=== PATIENT | female | born 1950 | race African-American/Black ===

== ENCOUNTER 2018-12-14 04:46 | Inpatient (IN) ==
[2018-12-14] MEDS ORDERED: Ipratropium/Albuterol Neb 3 ML IH ONE (05:01)
[2018-12-14] MEDS ORDERED: *HR* LORazepam 2 MG/ML VIAL IVP ONE (05:01)
--- NOTE | 2018-12-14 05:06 | Emergency Department Note ---
Disposition Clinical Impression: Pulmonary edema, COPD exacerbation, SAYDA (acute kidney injury) Disposition: Admitted As Inpatient Condition: Fair SOB HPI - General Chief Complaint: ED Shortness of Breath/Dyspnea Stated Complaint: "BRYCE" Time Seen by Provider: 12/14/18 04:47 Source: patient, family Mode of arrival: private vehicle Limitations: no limitations Nursing Notes Reviewed: Yes Vital Signs Reviewed: Yes - History of Present Illness 68-year-old female with a history of liver cancer who is on chemotherapy every 2 weeks with her last dose last Saturday, COPD, immunocompromise status, anemia, hyperlipidemia, hypertension who also occasionally uses cocaine and alcohol presents emergency department for evaluation of sudden onset shortness of breath around 4:00 this morning. Apparently, sometime during the night the patient's furnace went out and while the HVAC people were they are fixing the furnace patient started having shortness of breath sometime between 3 and 4 AM, she was unable to get it under control so she had her child bring her to the emergency department. Apparently, patient is on 4 L oxygen at all times at home, her son states she utilizes around 50 feet of extension tubing for her oxygen. Patient states she felt fine prior to this but feels like she cannot cough anything sputum AND her chest. She states she was admitted here last month for similar complaints. Patient states she had a couple of 24 ounce beers today, she states she utilizes marijuana "all day everyday", she does continue to utilize cocaine however she states last time she used was . Pt Subjective Complaint: shortness of breath, cough Onset (ago): hour(s) Context: other Severity: moderate Consistency/Duration: constant Improves with: nothing Worsens with: exertion, coughing Known history of: COPD, other Associated symptoms: Reports: cough, wheezing. Denies: chest pain, pain with inspiration, fever, sputum production, orthopnea, lower extremity pain, polyuria, polydipsia, parasthesias, palpitations, hemoptysis, diaphoresis, nausea/vomiting, syncope, abdominal pain, rash, sense of impending doom Treatment prior to arrival: oxygen, bronchodilator Cough present: Yes Cough Description: Involuntary, Non-Productive Cough Frequency: Intermittent Sputum production: No Sputum Amount: None - Related Data Home oxygen amount: 4 liters Home Medications Medication Instructions Recorded Confirmed Amlodipine Besylate 10 mg PO DAILY 02/17/16 12/15/18 Loratadine [Claritin] 10 mg PO DAILY 02/17/16 12/14/18 Atorvastatin Calcium [Lipitor] 80 mg PO DAILY 05/03/17 12/15/18 Mirtazapine [Remeron] 22.5 mg PO HS 05/03/17 12/15/18 Pantoprazole Sodium 40 mg PO BID 05/03/17 12/14/18 Carvedilol 12.5 mg PO BID 11/07/18 12/14/18 Gemcitabine HCl 11/07/18 11/07/18 Levothyroxine 125 mcg PO DAILY 11/07/18 12/14/18 Potassium Chloride [Klor-Con 10] 20 mg PO BID 11/07/18 12/14/18 Rivaroxaban 20 mg PO DAILY 11/07/18 12/14/18 Trintellix 20 mg PO DAILY 11/07/18 12/15/18 ARIPiprazole [Abilify] 7.5 mg PO DAILY 12/14/18 12/15/18 Nicotine [Nicotine Patch] 21 mcg TP DAILY 12/14/18 12/14/18 Promethazine [Phenergan] 25 mg PO Q6HR 12/14/18 12/14/18 diazePAM [Valium] 2 mg PO DAILY PRN 12/14/18 12/15/18 Acetaminophen [Tylenol] 650 mg PO Q6HR PRN 12/15/18 12/15/18 Albuterol Sulfate [Albuterol 1 puff IN Q6H PRN 12/15/18 12/15/18 Inhaler] Prazosin HCl [Minipress] 10 mg PO HS 12/15/18 12/15/18 Tiotropium [place] [Spiriva 5 mcg IN DAILY 12/15/18 12/15/18 Respimat] Previous Rx's Medication Instructions Recorded Acetylcysteine 10% 2 ml IH [id number] Days #28 inhsol 12/19/18 Gabapentin [Neurontin] 400 mg PO BID 30 Days #60 capsule 12/19/18 Ipratropium/Albuterol Neb [Duoneb] 3 ml IH [id number] 7 Days #28 inhsol 12/19/18 levoFLOXacin [Levaquin] 750 mg PO Q48H 6 Days #3 tablet 12/19/18 predniSONE [PredniSONE] See Taper PO DAILY 9 Days #12 12/19/18 tablet Allergies Allergy/AdvReac Type Severity Reaction Status Date / Time bupropion [From Wellbutrin] AdvReac See Verified 02/16/18 02:01 Comments enalaprilat [From Vasotec] AdvReac Hives Verified 02/16/18 02:01 tramadol AdvReac Headache Verified 02/16/18 02:01 All systems ED: reviewed and negative except as stated. Review of Systems: As Per HPI Constitutional: Denies: fever, chills ENT ED: Denies: throat pain, epistaxis, congestion Cardiovascular: Denies: chest pain, palpitations Respiratory: Reports: cough, dyspnea, wheezes. Denies: hemoptysis, stridor, spu carla production Gastrointestinal: Denies: abdominal pain, nausea, vomiting Musculoskeletal: Denies: back pain Neurological: Denies: headache Past Medical History - Past Medical History Attestation: Yes The following information was validated with the patient. Source: patient Medical history: Reports: cancer, COPD, hyperlipidemia, hypertension Surgical history: Reports: other Psychiatric history: Reports: anxiety COMMUNITY DEVELOPMENT COORDINATOR history: Reports: no COMMUNITY DEVELOPMENT COORDINATOR history - Social History Smoking Status: Current every day smoker Smokeless Tobacco Status: No Alcohol use: Reports: occasionally Drug use: Reports: cocaine, marijuana Physical Exam - General Limitations: no limitations General appearance: alert, in no apparent distress - Head Head exam: atraumatic, normocephalic, normal inspection - Eye Eye exam: Present: normal appearance, PERRL, EOMI - ENT ENT exam: mucous membranes moist - Neck Neck exam: Present: normal inspection, full ROM, trachea midline - Chest Chest inspection: Present: normal inspection, symmetric chest wall rise - Respiratory Respiratory exam: Present: wheezes (BLL), accessory muscle use, other (diminished BLL). Absent: stridor, prolonged expiratory phase - Cardiovascular Cardiovascular exam: Present: normal rhythm, tachycardia, normal heart sounds - Abdominal Exam Abdominal exam: Present: soft, Non-Tender, normal bowel sounds - Extremities Exam Extremities exam: Present: normal inspection, full ROM. Absent: tenderness, pedal edema - Back Exam Back exam: Present: normal inspection, full ROM. Absent: tenderness - Neurological Exam Neurological exam: Present: alert, oriented X3 - Psychiatric Psychiatric exam: Present: normal affect, normal mood - Skin Skin exam: Present: warm, dry, intact, normal color Course Course Narrative: Nontoxic appearing female in moderate amount of distress. Patient is breathing fast, she does appear very anxious. She arrives without any oxygen, immediately placed oxygen on her and patient is not hypoxic. She does well when she has the oxygen on. Patient arrives with a temperature of 99.4, she is hypertensive. EKG upon arrival at 04:59 reveals a sinus tachycardia with ventricular rate of 100 bpm, ID interval 156 seconds, QTc 460 ms. There is no evidence of ST depression or elevation, with comparison to previous there is no acute change. Physical exam reveals patient was slight tachypnea at 22 respirations minute, and she does have pursed lips breathing, she does appear anxious. Lungs are severely diminished in the bases, she does have expiratory wheezes to the bases. Heart rate regular rhythm, no edema. Abdomen is protuberant, soft. Concern for continuation of PNA, pulmonary edema. Will obtain basic labs, CXR. WIll give duonebs. Hold off on steroids given her immunocompromise status. Vital Signs Temperature 99.4 F 12/14/18 04:55 Pulse Rate 98 12/14/18 04:55 Respiratory Rate 28 12/14/18 04:55 Blood Pressure 175/102 12/14/18 04:55 O2 Sat by Pulse Oximetry 97 12/14/18 04:55 Temperature 98.3 F 12/19/18 10:32 Pulse Rate 78 12/19/18 10:32 Respiratory Rate 15 12/19/18 10:32 Blood Pressure 152/91 12/19/18 10:32 O2 Sat by Pulse Oximetry 97 12/19/18 10:32 Oxygen Delivery Oxygen Delivery Nasal Cannula Shortness of Breath/Dyspnea - Lab Data Result diagrams: 12/18/18 03:58 12/18/18 03:58 Lab Results 12/14/18 12/14/18 12/14/18 Range/Units 05:16 05:16 05:16 WBC 2.4 L (4.3-11.1) K/mcL RBC 2.72 L (3.82-4.97) M/mcL Hgb 9.5 L (11.5-15.4) g/dL Hct 27.8 L (35.3-44.9) % MCV 102.2 H (83.0-100.0) fL MCH 34.9 H (28.0-33.3) pg MCHC 34.2 (31.6-35.5) g/dL RDW 17.4 H (11.5-14.5) % Plt Count 146 (140-400) K/mcL MPV 9.8 (9.4-12.4) fL Immature Gran % 0.4 (0-4) % Seg Neutrophils % 66.4 % Lymphocytes % 27.4 % Monocytes % 2.5 % Eosinophils % 2.9 % Basophils % 0.4 % Neutrophils # 1.6 (1.6-8.9) K/mcL Lymphocytes # 0.7 (0.6-4.6) K/mcL Monocytes # 0.1 (0.0-1.3) K/mcL Eosinophils # 0.1 (0.0-0.6) K/mcL Basophils # 0.0 (0.0-0.2) K/mcL Sample Site ABG pH (7.32-7.45) pH Units ABG pCO2 (35-45) mmHg ABG pO2 (85-104) mmHg ABG HCO3 (21-27) mEq/L ABG Total CO2 (20-26) mEq/L ABG O2 Saturation (95-98) % ABG Base Excess (-2 to 3) mEq/L Patrick Test O2 Delivery Device Inspired O2 (1-15=lpm xe44-210=%) Sodium 139 (136-145) mEq/L Potassium 3.3 L (3.5-5.1) mEq/L Chloride 99 (98-107) mEq/L Carbon Dioxide 26 (23-29) mEq/L BUN 18 (8-23) mg/dL Creatinine 1.26 H (0.60-1.20) mg/dL Est GFR ( Amer) 51 L (> 60) Est GFR (Non-Af Amer) 42 L (> 60) BUN/Creatinine Ratio 14 (6-26) Glucose 88 (70-105) mg/dL Calculated Osmolality 289 (280-300) Lactic Acid 2.1 (0.5-2.2) mmol/L Calcium 7.7 L (8.6-10.3) mg/dL Total Bilirubin 0.3 (0.3-1.0) mg/dL Direct Bilirubin 0.1 (0.0-0.2) mg/dL Indirect Bilirubin 0.2 (0.0-1.2) mg/dL AST 25 (13-39) Units/L ALT 12 (7-52) Units/L Alkaline Phosphatase 48 (34-104) Units/L Troponin I < 0.03 (< 0.04) ng/mL B-Natriuretic Peptide (Less than 100) pg/mL Serum Total Protein 6.3 L (6.4-8.9) g/dL Albumin 3.6 (3.5-5.7) g/dL Globulin 2.7 (2.4-3.5) g/dL Albumin/Globulin Ratio 1.3 (1.1-2.2) Urine Color (Yellow) Urine Clarity (Clear) Urine pH (5.0-8.0) pH Units Ur Specific [place] (1.010-1.025) Urine Protein (Neg-Trace) mg/dL Urine Glucose (UA) (Normal) mg/dL Urine Ketones (Negative) mg/dL Urine Blood (Negative) Urine Nitrite (Negative) Urine Bilirubin (Negative) Urine Urobilinogen (Normal) mg/dL Ur Leukocyte Esterase (Negative) Urine Microscopic RBC (0-3) per hpf Urine Microscopic WBC (0-3) per hpf Ur Squamous Epith Cells (None-Few) per lpf Urine Bacteria (None-Few) per hpf Hyaline Casts (None-Few) per lpf Ur Culture Indicated? (NO) 12/14/18 12/14/18 12/14/18 Range/Units 05:21 06:17 07:15 WBC (4.3-11.1) K/mcL RBC (3.82-4.97) M/mcL Hgb (11.5-15.4) g/dL Hct (35.3-44.9) % MCV (83.0-100.0) fL MCH (28.0-33.3) pg MCHC (31.6-35.5) g/dL RDW (11.5-14.5) % Plt Count (140-400) K/mcL MPV (9.4-12.4) fL Immature Gran % (0-4) % Seg Neutrophils % % Lymphocytes % % Monocytes % % Eosinophils % % Basophils % % Neutrophils # (1.6-8.9) K/mcL Lymphocytes # (0.6-4.6) K/mcL Monocytes # (0.0-1.3) K/mcL Eosinophils # (0.0-0.6) K/mcL Basophils # (0.0-0.2) K/mcL Sample Site R Radial ABG pH 7.43 (7.32-7.45) pH Units ABG pCO2 43 (35-45) mmHg ABG pO2 72 L (85-104) mmHg ABG HCO3 28 H (21-27) mEq/L ABG Total CO2 30 H (20-26) mEq/L ABG O2 Saturation 95 (95-98) % ABG Base Excess 4 H (-2 to 3) mEq/L Patrick Test Positive O2 Delivery Device Cannula Inspired O2 4.0 (1-15=lpm qf19-660=%) Sodium (136-145) mEq/L Potassium (3.5-5.1) mEq/L Chloride (98-107) mEq/L Carbon Dioxide (23-29) mEq/L BUN (8-23) mg/dL Creatinine (0.60-1.20) mg/dL Est GFR ( Amer) (> 60) Est GFR (Non-Af Amer) (> 60) BUN/Creatinine Ratio (6-26) Glucose (70-105) mg/dL Calculated Osmolality (280-300) Lactic Acid (0.5-2.2) mmol/L Calcium (8.6-10.3) mg/dL Total Bilirubin (0.3-1.0) mg/dL Direct Bilirubin (0.0-0.2) mg/dL Indirect Bilirubin (0.0-1.2) mg/dL AST (13-39) Units/L ALT (7-52) Units/L Alkaline Phosphatase (34-104) Units/L Troponin I (< 0.04) ng/mL B-Natriuretic Peptide 76 (Less than 100) pg/mL Serum Total Protein (6.4-8.9) g/dL Albumin (3.5-5.7) g/dL Globulin (2.4-3.5) g/dL Albumin/Globulin Ratio (1.1-2.2) Urine Color Yellow (Yellow) Urine Clarity Clear (Clear) Urine pH 6.0 (5.0-8.0) pH Units Ur Specific [place] 1.014 (1.010-1.025) Urine Protein 30 H (Neg-Trace) mg/dL Urine Glucose (UA) Normal (Normal) mg/dL Urine Ketones Negative (Negative) mg/dL Urine Blood Negative (Negative) Urine Nitrite Negative (Negative) Urine Bilirubin Negative (Negative) Urine Urobilinogen Normal (Normal) mg/dL Ur Leukocyte Esterase Trace H (Negative) Urine Microscopic RBC 0-3 (0-3) per hpf Urine Microscopic WBC 3-5 H (0-3) per hpf Ur Squamous Epith Cells Many H (None-Few) per lpf Urine Bacteria None Seen (None-Few) per hpf Hyaline Casts None Seen (None-Few) per lpf Ur Culture Indicated? NO. A (NO) SJake - Theron Situation: Demographics, MOA Background: Presenting Complaint, Relevant PMH, Meds, & Allergies Assessment: Vital Signs, Course and respsone to treatment, Exam Concerns, Patient/Family Expectation, Pertinant Lab Results, Outstanding Labs Recommendation: Barrier(s) to disposition, Recommendation based on pending studies, treatments, or consults S.B.A.Elizabeth Report Given to: FEDERICO Mike Repor Time: 06:00
[2018-12-14 05:27] LABS: Basophils % 0.4 %; Eosinophils # 0.1 K/mcL (0.0-0.6); Eosinophils % 2.9 %; Hematocrit 27.8 % (35.3-44.9); Hemoglobin 9.5 g/dL (11.5-15.4); Immature Granulocytes % 0.4 % (0-4); Lymphocytes # 0.7 K/mcL (0.6-4.6); Lymphocytes % 27.4 %; Mean Corpuscular HGB Conc 34.2 g/dL (31.6-35.5); Mean Corpuscular Hemoglobin 34.9 pg (28.0-33.3); Mean Corpuscular Volume 102.2 fL (83.0-100.0); Mean Platelet Volume 9.8 fL (9.4-12.4); Monocytes # 0.1 K/mcL (0.0-1.3); Monocytes % 2.5 %; Neutrophils # 1.6 K/mcL (1.6-8.9); Platelet Count 146 K/mcL (140-400); Red Blood Count 2.72 M/mcL (3.82-4.97); Red Cell Distribution Width 17.4 % (11.5-14.5); Segmented Neutrophils % 66.4 %
[2018-12-14 05:45] LABS: Alanine Aminotransferase 12 Units/L (7-52); Albumin 3.6 g/dL (3.5-5.7); Albumin/Globulin Ratio 1.3 (1.1-2.2); Alkaline Phosphatase 48 Units/L (34-104); Aspartate Amino Transferase 25 Units/L (13-39); BUN/Creatinine Ratio 14 (6-26); Bilirubin,Direct 0.1 mg/dL (0.0-0.2); Bilirubin,Indirect 0.2 mg/dL (0.0-1.2); Bilirubin,Total 0.3 mg/dL (0.3-1.0); Blood Urea Nitrogen 18 mg/dL (8-23); Calcium 7.7 mg/dL (8.6-10.3); Carbon Dioxide 26 mEq/L (23-29); Chloride 99 mEq/L (98-107); Globulin 2.7 g/dL (2.4-3.5); Glucose 88 mg/dL (70-105); Osmolality,Calculated 289 (280-300); Potassium 3.3 mEq/L (3.5-5.1); Sodium 139 mEq/L (136-145); Total Protein 6.3 g/dL (6.4-8.9); eGFR For Non-African Americans 42 (> 60)
[2018-12-14 05:46] LABS: Troponin I < 0.03 ng/mL (< 0.04)
[2018-12-14] MEDS ORDERED: Furosemide 20 MG/2 ML VIAL IVP ONE (05:57)
[2018-12-14 06:23] LABS: ABG Base Excess 4 mEq/L (-2 to 3); ABG HCO3 28 mEq/L (21-27); ABG Oxygen Saturation 95 % (95-98); ABG PCO2 43 mmHg (35-45); ABG PH 7.43 pH Units (7.32-7.45); ABG PO2 72 mmHg (85-104); ABG TCO2 30 mEq/L (20-26)
--- NOTE | 2018-12-14 06:39 | Emergency Department Note ---
Disposition Clinical Impression: COPD exacerbation Pulmonary edema Qualifiers: Chronicity: chronic Qualified Code(s): J81.1 - Chronic pulmonary edema Disposition: Admitted As Inpatient Condition: Good Forms: ED Satisfaction Letter Time of Disposition: 06:39 General Adult HPI - General Chief complaint: ED Shortness of Breath/Dyspnea Stated complaint: "BRYCE" Time Seen by Provider: 12/14/18 04:47 Source: patient, family Mode of arrival: private vehicle Limitations: no limitations - History of Present Illness Pain Scale: 0 - Related Data Home Medications Medication Instructions Recorded Confirmed Aclidinium [place] [Tudorza 400 mcg IH BID 02/17/16 05/03/17 Pressair] Amlodipine Besylate 10 mg PO DAILY 02/17/16 05/03/17 Calcium Citrate/Vitamin D3 1 each PO BID 02/17/16 05/03/17 [Calcium Citrate-Vit D3 Tablet] Etodolac 500 mg PO BID 02/17/16 05/03/17 Gabapentin [Neurontin] 800 mg PO TID 02/17/16 11/07/18 Loratadine [Claritin] 10 mg PO DAILY 02/17/16 11/07/18 Atorvastatin Calcium [Lipitor] 80 mg PO DAILY 05/03/17 11/07/18 Famotidine [Heartburn Prevention] 20 mg PO DAILY 05/03/17 05/03/17 Mirtazapine [Remeron] 22.5 mg PO HS 05/03/17 11/07/18 Pantoprazole Sodium 40 mg PO BID 05/03/17 11/07/18 Prazosin HCl [Minipress] 2 mg PO HS 05/03/17 11/07/18 Carvedilol 12.5 mg PO BID 11/07/18 11/07/18 Gemcitabine HCl 11/07/18 11/07/18 Levothyroxine 125 mcg PO DAILY 11/07/18 11/07/18 Potassium Chloride [Klor-Con 10] 20 mg PO BID 11/07/18 11/07/18 Rivaroxaban 20 mg PO DAILY 11/07/18 11/07/18 Tiotropium 18 mg IH DAILY 11/07/18 11/07/18 Trintellix 20 mg PO DAILY 11/07/18 11/07/18 Previous Rx's Medication Instructions Recorded Acetaminophen [Tylenol] 500 mg PO Q6HR PRN #20 tablet 06/12/17 Joseph/Poly/HC *EAR* SOLN 4 drop RIGHT EAR QID #1 solution 06/12/17 [Cortisporin *EAR* SOLN] Allergies Allergy/AdvReac Type Severity Reaction Status Date / Time bupropion [From Wellbutrin] AdvReac See Verified 02/16/18 02:01 Comments enalaprilat [From Vasotec] AdvReac Hives Verified 02/16/18 02:01 tramadol AdvReac Headache Verified 02/16/18 02:01 Constitutional: Denies: fever, chills ENT ED: Denies: throat pain, epistaxis, congestion Cardiovascular: Denies: chest pain, palpitations Respiratory: Reports: cough, dyspnea, wheezes. Denies: hemoptysis, stridor, sputum production Gastrointestinal: Denies: abdominal pain, nausea, vomiting Musculoskeletal: Denies: back pain Neurological: Denies: headache Past Medical History - Past Medical History Medical history: Reports: cancer, COPD, hyperlipidemia, hypertension Surgical history: Reports: other Psychiatric history: Reports: anxiety OFFICER LIEUTENANT history: Reports: no OFFICER LIEUTENANT history - Social History Smoking Status: Current every day smoker Smokeless Tobacco Status: No Alcohol use: Reports: occasionally Drug use: Reports: cocaine, marijuana Physical Exam - General Limitations: no limitations General appearance: alert, in no apparent distress Course Vital Signs Temperature 99.4 F 12/14/18 04:55 Pulse Rate 98 12/14/18 04:55 Respiratory Rate 28 12/14/18 04:55 Blood Pressure 175/102 12/14/18 04:55 O2 Sat by Pulse Oximetry 97 12/14/18 04:55 Temperature 99.4 F 12/14/18 04:55 Pulse Rate 98 12/14/18 04:55 Respiratory Rate 16 12/14/18 05:21 Blood Pressure 175/102 12/14/18 04:55 O2 Sat by Pulse Oximetry 98 12/14/18 05:21 Oxygen Delivery Oxygen Delivery Room Air Medical Decision Making - Lab Data Result diagrams: 12/14/18 05:16 12/14/18 05:16 Lab Results 12/14/18 12/14/18 12/14/18 Range/Units 05:16 05:16 05:16 WBC 2.4 L (4.3-11.1) K/mcL RBC 2.72 L (3.82-4.97) M/mcL Hgb 9.5 L (11.5-15.4) g/dL Hct 27.8 L (35.3-44.9) % MCV 102.2 H (83.0-100.0) fL MCH 34.9 H (28.0-33.3) pg MCHC 34.2 (31.6-35.5) g/dL RDW 17.4 H (11.5-14.5) % Plt Count 146 (140-400) K/mcL MPV 9.8 (9.4-12.4) fL Immature Gran % 0.4 (0-4) % Seg Neutrophils % 66.4 % Lymphocytes % 27.4 % Monocytes % 2.5 % Eosinophils % 2.9 % Basophils % 0.4 % Neutrophils # 1.6 (1.6-8.9) K/mcL Lymphocytes # 0.7 (0.6-4.6) K/mcL Monocytes # 0.1 (0.0-1.3) K/mcL Eosinophils # 0.1 (0.0-0.6) K/mcL Basophils # 0.0 (0.0-0.2) K/mcL Sample Site ABG pH (7.32-7.45) pH Units ABG pCO2 (35-45) mmHg ABG pO2 (85-104) mmHg ABG HCO3 (21-27) mEq/L ABG Total CO2 (20-26) mEq/L ABG O2 Saturation (95-98) % ABG Base Excess (-2 to 3) mEq/L Patrick Test O2 Delivery Device Inspired O2 (1-15=lpm sp34-654=%) Sodium 139 (136-145) mEq/L Potassium 3.3 L (3.5-5.1) mEq/L Chloride 99 (98-107) mEq/L Carbon Dioxide 26 (23-29) mEq/L BUN 18 (8-23) mg/dL Creatinine 1.26 H (0.60-1.20) mg/dL Est GFR ( Amer) 51 L (> 60) Est GFR (Non-Af Amer) 42 L (> 60) BUN/Creatinine Ratio 14 (6-26) Glucose 88 (70-105) mg/dL Calculated Osmolality 289 (280-300) Lactic Acid 2.1 (0.5-2.2) mmol/L Calcium 7.7 L (8.6-10.3) mg/dL Total Bilirubin 0.3 (0.3-1.0) mg/dL Direct Bilirubin 0.1 (0.0-0.2) mg/dL Indirect Bilirubin 0.2 (0.0-1.2) mg/dL AST 25 (13-39) Units/L ALT 12 (7-52) Units/L Alkaline Phosphatase 48 (34-104) Units/L Troponin I < 0.03 (< 0.04) ng/mL B-Natriuretic Peptide (Less than 100) pg/mL Serum Total Protein 6.3 L (6.4-8.9) g/dL Albumin 3.6 (3.5-5.7) g/dL Globulin 2.7 (2.4-3.5) g/dL Albumin/Globulin Ratio 1.3 (1.1-2.2) 12/14/18 12/14/18 Range/Units 05:21 06:17 WBC (4.3-11.1) K/mcL RBC (3.82-4.97) M/mcL Hgb (11.5-15.4) g/dL Hct (35.3-44.9) % MCV (83.0-100.0) fL MCH (28.0-33.3) pg MCHC (31.6-35.5) g/dL RDW (11.5-14.5) % Plt Count (140-400) K/mcL MPV (9.4-12.4) fL Immature Gran % (0-4) % Seg Neutrophils % % Lymphocytes % % Monocytes % % Eosinophils % % Basophils % % Neutrophils # (1.6-8.9) K/mcL Lymphocytes # (0.6-4.6) K/mcL Monocytes # (0.0-1.3) K/mcL Eosinophils # (0.0-0.6) K/mcL Basophils # (0.0-0.2) K/mcL Sample Site R Radial ABG pH 7.43 (7.32-7.45) pH Units ABG pCO2 43 (35-45) mmHg ABG pO2 72 L (85-104) mmHg ABG HCO3 28 H (21-27) mEq/L ABG Total CO2 30 H (20-26) mEq/L ABG O2 Saturation 95 (95-98) % ABG Base Excess 4 H (-2 to 3) mEq/L Patrick Test Positive O2 Delivery Device Cannula Inspired O2 4.0 (1-15=lpm eb91-274=%) Sodium (136-145) mEq/L Potassium (3.5-5.1) mEq/L Chloride (98-107) mEq/L Carbon Dioxide (23-29) mEq/L BUN (8-23) mg/dL Creatinine (0.60-1.20) mg/dL Est GFR ( Amer) (> 60) Est GFR (Non-Af Amer) (> 60) BUN/Creatinine Ratio (6-26) Glucose (70-105) mg/dL Calculated Osmolality (280-300) Lactic Acid (0.5-2.2) mmol/L Calcium (8.6-10.3) mg/dL Total Bilirubin (0.3-1.0) mg/dL Direct Bilirubin (0.0-0.2) mg/dL Indirect Bilirubin (0.0-1.2) mg/dL AST (13-39) Units/L ALT (7-52) Units/L Alkaline Phosphatase (34-104) Units/L Troponin I (< 0.04) ng/mL B-Natriuretic Peptide 76 (Less than 100) pg/mL Serum Total Protein (6.4-8.9) g/dL Albumin (3.5-5.7) g/dL Globulin (2.4-3.5) g/dL Albumin/Globulin Ratio (1.1-2.2) Attestation Statement - Attestation Attestation: For this encounter, I have reviewed the TONGUE AND GROOVE MACHINE SETTER or PA documentation, treatment plan, and medical decision making; and I have had face to face time with this patient. 68 year old female presents to the ED with complaitns of dyspnea and is chornicaly on 4lNC at home. History of liver CAncer and currently recieving chem otherapy. Patinet has pulmonary edema on CXR, we will admit to nisane.
--- NOTE | 2018-12-14 06:40 | Emergency Department Note ---
Disposition Clinical Impression: COPD exacerbation, SAYDA (acute kidney injury) Pulmonary edema Qualifiers: Chronicity: chronic Qualified Code(s): J81.1 - Chronic pulmonary edema Disposition: Admitted As Inpatient Condition: Fair Referrals: NONE,PCP [Primary Care Provider] - Forms: ED Satisfaction Letter SOB HPI - General Chief Complaint: ED Shortness of Breath/Dyspnea Stated Complaint: "BRYCE" Time Seen by Provider: 12/14/18 04:47 Source: patient, family Mode of arrival: private vehicle Limitations: no limitations - History of Present Illness Severity: moderate Improves with: nothing Worsens with: exertion, coughing Associated symptoms: Reports: cough, wheezing. Denies: chest pain, pain with inspiration, fever, sputum production, orthopnea, lower extremity pain, polyuria, polydipsia, parasthesias, palpitations, hemoptysis, diaphoresis, nausea/vomiting, syncope, abdominal pain, rash, sense of impending doom Treatment prior to arrival: oxygen, bronchodilator - Related Data Home oxygen amount: 4 liters Home Medications Medication Instructions Recorded Confirmed Aclidinium [place] [Tudorza 400 mcg IH BID 02/17/16 05/03/17 Pressair] Amlodipine Besylate 10 mg PO DAILY 02/17/16 05/03/17 Calcium Citrate/Vitamin D3 1 each PO BID 02/17/16 05/03/17 [Calcium Citrate-Vit D3 Tablet] Etodolac 500 mg PO BID 02/17/16 05/03/17 Gabapentin [Neurontin] 800 mg PO TID 02/17/16 11/07/18 Loratadine [Claritin] 10 mg PO DAILY 02/17/16 11/07/18 Atorvastatin Calcium [Lipitor] 80 mg PO DAILY 05/03/17 11/07/18 Famotidine [Heartburn Prevention] 20 mg PO DAILY 05/03/17 05/03/17 Mirtazapine [Remeron] 22.5 mg PO HS 05/03/17 11/07/18 Pantoprazole Sodium 40 mg PO BID 05/03/17 11/07/18 Prazosin HCl [Minipress] 2 mg PO HS 05/03/17 11/07/18 Carvedilol 12.5 mg PO BID 11/07/18 11/07/18 Gemcitabine HCl 11/07/18 11/07/18 Levothyroxine 125 mcg PO DAILY 11/07/18 11/07/18 Potassium Chloride [Klor-Con 10] 20 mg PO BID 11/07/18 11/07/18 Rivaroxaban 20 mg PO DAILY 11/07/18 11/07/18 Tiotropium 18 mg IH DAILY 11/07/18 11/07/18 Trintellix 20 mg PO DAILY 11/07/18 11/07/18 Previous Rx's Medication Instructions Recorded Acetaminophen [Tylenol] 500 mg PO Q6HR PRN #20 tablet 06/12/17 Joseph/Poly/HC *EAR* SOLN 4 drop RIGHT EAR QID #1 solution 06/12/17 [Cortisporin *EAR* SOLN] Allergies Allergy/AdvReac Type Severity Reaction Status Date / Time bupropion [From Wellbutrin] AdvReac See Verified 02/16/18 02:01 Comments enalaprilat [From Vasotec] AdvReac Hives Verified 02/16/18 02:01 tramadol AdvReac Headache Verified 02/16/18 02:01 Constitutional: Denies: fever, chills ENT ED: Denies: throat pain, epistaxis, congestion Cardiovascular: Denies: chest pain, palpitations Respiratory: Reports: cough, dyspnea, wheezes. Denies: hemoptysis, stridor, sputum production Gastrointestinal: Denies: abdominal pain, nausea, vomiting Musculoskeletal: Denies: back pain Neurological: Denies: headache Past Medical History - Past Medical History Medical history: Reports: cancer, COPD, hyperlipidemia, hypertension Surgical history: Reports: other Psychiatric history: Reports: anxiety FURS SALESPERSON history: Reports: no FURS SALESPERSON history - Social History Smoking Status: Current every day smoker Smokeless Tobacco Status: No Alcohol use: Reports: occasionally Drug use: Reports: cocaine, marijuana Physical Exam - General Limitations: no limitations General appearance: alert, in no apparent distress Course Course Narrative: Assumed care of this patient from LEE ANN Briones at shift change. Patient experienced BRYCE and called EMS. Hx of COPD/CHF, HTN, Liver CA w/ recent chemo tx., and poly substance abuse. Hx of similar episodes of BRYCE. On Home O2. Tachypneic upon arrival, normal resp rate now. Symptoms improved after a neb. CXR shows pulmonary edema. LAsix has already been given. BNP and ABG pending. Patient is feeling better. BNP mildly elevated. Hospitalist paged. Case discussed with Dr. Bolton. He has accepted the patient. Vital Signs Temperature 99.4 F 12/14/18 04:55 Pulse Rate 98 12/14/18 04:55 Respiratory Rate 28 12/14/18 04:55 Blood Pressure 175/102 12/14/18 04:55 O2 Sat by Pulse Oximetry 97 12/14/18 04:55 Temperature 99.4 F 12/14/18 04:55 Pulse Rate 91 12/14/18 06:44 Respiratory Rate 20 12/14/18 06:44 Blood Pressure 148/92 12/14/18 06:44 O2 Sat by Pulse Oximetry 93 12/14/18 06:44 Oxygen Delivery Oxygen Delivery Nasal Cannula Shortness of Breath/Dyspnea - Medical Records Medical records reviewed: Yes I reviewed the patient's medical records. - Lab Data Lab results reviewed: Yes I reviewed the patient's lab results. Lab results narrative: Laboratory Last Values WBC 2.4 K/mcL (4.3-11.1) L 12/14/18 05:16 RBC 2.72 M/mcL (3.82-4.97) L 12/14/18 05:16 Hgb 9.5 g/dL (11.5-15.4) L 12/14/18 05:16 Hct 27.8 % (35.3-44.9) L 12/14/18 05:16 MCV 102.2 fL (83.0-100.0) H 12/14/18 05:16 MCH 34.9 pg (28.0-33.3) H 12/14/18 05:16 MCHC 34.2 g/dL (31.6-35.5) 12/14/18 05:16 RDW 17.4 % (11.5-14.5) H 12/14/18 05:16 Plt Count 146 K/mcL (140-400) 12/14/18 05:16 MPV 9.8 fL (9.4-12.4) 12/14/18 05:16 Immature Gran % 0.4 % (0-4) 12/14/18 05:16 Seg Neutrophils % 66.4 % 12/14/18 05:16 Lymphocytes % 27.4 % 12/14/18 05:16 Monocytes % 2.5 % 12/14/18 05:16 Eosinophils % 2.9 % 12/14/18 05:16 Basophils % 0.4 % 12/14/18 05:16 Neutrophils # 1.6 K/mcL (1.6-8.9) 12/14/18 05:16 Lymphocytes # 0.7 K/mcL (0.6-4.6) 12/14/18 05:16 Monocytes # 0.1 K/mcL (0.0-1.3) 12/14/18 05:16 Eosinophils # 0.1 K/mcL (0.0-0.6) 12/14/18 05:16 Basophils # 0.0 K/mcL (0.0-0.2) 12/14/18 05:16 Sample Site R Radial 12/14/18 06:17 ABG pH 7.43 pH Units (7.32-7.45) 12/14/18 06:17 ABG pCO2 43 mmHg (35-45) 12/14/18 06:17 ABG pO2 72 mmHg (85-104) L 12/14/18 06:17 ABG HCO3 28 mEq/L (21-27) H 12/14/18 06:17 ABG Total CO2 30 mEq/L (20-26) H 12/14/18 06:17 ABG O2 Saturation 95 % (95-98) 12/14/18 06:17 ABG Base Excess 4 mEq/L (-2 to 3) H 12/14/18 06:17 Patrick Test Positive 12/14/18 06:17 O2 Delivery Device Cannula 12/14/18 06:17 Inspired O2 4.0 (1-15=lpm [id number]=%) 12/14/18 06:17 Sodium 139 mEq/L (136-145) 12/14/18 05:16 Potassium 3.3 mEq/L (3.5-5.1) L 12/14/18 05:16 Chloride 99 mEq/L (98-107) 12/14/18 05:16 Carbon Dioxide 26 mEq/L (23-29) 12/14/18 05:16 BUN 18 mg/dL (8-23) 12/14/18 05:16 Creatinine 1.26 mg/dL (0.60-1.20) H 12/14/18 05:16 Est GFR ( Amer) 51 (> 60) L 12/14/18 05:16 Est GFR (Non-Af Amer) 42 (> 60) L 12/14/18 05:16 BUN/Creatinine Ratio 14 (6-26) 12/14/18 05:16 Glucose 88 mg/dL (70-105) 12/14/18 05:16 Calculated Osmolality 289 (280-300) 12/14/18 05:16 Lactic Acid 2.1 mmol/L (0.5-2.2) 12/14/18 05:16 Calcium 7.7 mg/dL (8.6-10.3) L 12/14/18 05:16 Total Bilirubin 0.3 mg/dL (0.3-1.0) 12/14/18 05:16 Direct Bilirubin 0.1 mg/dL (0.0-0.2) 12/14/18 05:16 Indirect Bilirubin 0.2 mg/dL (0.0-1.2) 12/14/18 05:16 AST 25 Units/L (13-39) 12/14/18 05:16 ALT 12 Units/L (7-52) 12/14/18 05:16 Alkaline Phosphatase 48 Units/L (34-104) 12/14/18 05:16 Troponin I < 0.03 ng/mL (< 0.04) 12/14/18 05:16 B-Natriuretic Peptide 76 pg/mL (Less than 100) 12/14/18 05:21 Serum Total Protein 6.3 g/dL (6.4-8.9) L 12/14/18 05:16 Albumin 3.6 g/dL (3.5-5.7) 12/14/18 05:16 Globulin 2.7 g/dL (2.4-3.5) 12/14/18 05:16 Albumin/Globulin Ratio 1.3 (1.1-2.2) 12/14/18 05:16 Result diagrams: 12/14/18 05:16 12/14/18 05:16 Lab Results 12/14/18 12/14/18 12/14/18 Range/Units 05:16 05:16 05:16 WBC 2.4 L (4.3-11.1) K/mcL RBC 2.72 L (3.82-4.97) M/mcL Hgb 9.5 L (11.5-15.4) g/dL Hct 27.8 L (35.3-44.9) % MCV 102.2 H (83.0-100.0) fL MCH 34.9 H (28.0-33.3) pg MCHC 34.2 (31.6-35.5) g/dL RDW 17.4 H (11.5-14.5) % Plt Count 146 (140-400) K/mcL MPV 9.8 (9.4-12.4) fL Immature Gran % 0.4 (0-4) % Seg Neutrophils % 66.4 % Lymphocytes % 27.4 % Monocytes % 2.5 % Eosinophils % 2.9 % Basophils % 0.4 % Neutrophils # 1.6 (1.6-8.9) K/mcL Lymphocytes # 0.7 (0.6-4.6) K/mcL Monocytes # 0.1 (0.0-1.3) K/mcL Eosinophils # 0.1 (0.0-0.6) K/mcL Basophils # 0.0 (0.0-0.2) K/mcL Sample Site ABG pH (7.32-7.45) pH Units ABG pCO2 (35-45) mmHg ABG pO2 (85-104) mmHg ABG HCO3 (21-27) mEq/L ABG Total CO2 (20-26) mEq/L ABG O2 Saturation (95-98) % ABG Base Excess (-2 to 3) mEq/L Patrick Test O2 Delivery Device Inspired O2 (1-15=lpm [id number]=%) Sodium 139 (136-145) mEq/L Potassium 3.3 L (3.5-5.1) mEq/L Chloride 99 (98-107) mEq/L Carbon Dioxide 26 (23-29) mEq/L BUN 18 (8-23) mg/dL Creatinine 1.26 H (0.60-1.20) mg/dL Est GFR ( Amer) 51 L (> 60) Est GFR (Non-Af Amer) 42 L (> 60) BUN/Creatinine Ratio 14 (6-26) Glucose 88 (70-105) mg/dL Calculated Osmolality 289 (280-300) Lactic Acid 2.1 (0.5-2.2) mmol/L Calcium 7.7 L (8.6-10.3) mg/dL Total Bilirubin 0.3 (0.3-1.0) mg/dL Direct Bilirubin 0.1 (0.0-0.2) mg/dL Indirect Bilirubin 0.2 (0.0-1.2) mg/dL AST 25 (13-39) Units/L ALT 12 (7-52) Units/L Alkaline Phosphatase 48 (34-104) Units/L Troponin I < 0.03 (< 0.04) ng/mL B-Natriuretic Peptide (Less than 100) pg/mL Serum Total Protein 6.3 L (6.4-8.9) g/dL Albumin 3.6 (3.5-5.7) g/dL Globulin 2.7 (2.4-3.5) g/dL Albumin/Globulin Ratio 1.3 (1.1-2.2) 12/14/18 12/14/18 Range/Units 05:21 06:17 WBC (4.3-11.1) K/mcL RBC (3.82-4.97) M/mcL Hgb (11.5-15.4) g/dL Hct (35.3-44.9) % MCV (83.0-100.0) fL MCH (28.0-33.3) pg MCHC (31.6-35.5) g/dL RDW (11.5-14.5) % Plt Count (140-400) K/mcL MPV (9.4-12.4) fL Immature Gran % (0-4) % Seg Neutrophils % % Lymphocytes % % Monocytes % % Eosinophils % % Basophils % % Neutrophils # (1.6-8.9) K/mcL Lymphocytes # (0.6-4.6) K/mcL Monocytes # (0.0-1.3) K/mcL Eosinophils # (0.0-0.6) K/mcL Basophils # (0.0-0.2) K/mcL Sample Site R Radial ABG pH 7.43 (7.32-7.45) pH Units ABG pCO2 43 (35-45) mmHg ABG pO2 72 L (85-104) mmHg ABG HCO3 28 H (21-27) mEq/L ABG Total CO2 30 H (20-26) mEq/L ABG O2 Saturation 95 (95-98) % ABG Base Excess 4 H (-2 to 3) mEq/L Patrick Test Positive O2 Delivery Device Cannula Inspired O2 4.0 (1-15=lpm [id number]=%) Sodium (136-145) mEq/L Potassium (3.5-5.1) mEq/L Chloride (98-107) mEq/L Carbon Dioxide (23-29) mEq/L BUN (8-23) mg/dL Creatinine (0.60-1.20) mg/dL Est GFR ( Amer) (> 60) Est GFR (Non-Af Amer) (> 60) BUN/Creatinine Ratio (6-26) Glucose (70-105) mg/dL Calculated Osmolality (280-300) Lactic Acid (0.5-2.2) mmol/L Calcium (8.6-10.3) mg/dL Total Bilirubin (0.3-1.0) mg/dL Direct Bilirubin (0.0-0.2) mg/dL Indirect Bilirubin (0.0-1.2) mg/dL AST (13-39) Units/L ALT (7-52) Units/L Alkaline Phosphatase (34-104) Units/L Troponin I (< 0.04) ng/mL B-Natriuretic Peptide 76 (Less than 100) pg/mL Serum Total Protein (6.4-8.9) g/dL Albumin (3.5-5.7) g/dL Globulin (2.4-3.5) g/dL Albumin/Globulin Ratio (1.1-2.2) - Radiology Data Radiology results reviewed: Yes I reviewed the patient's radiology results. Chest X-Ray 12/14/18 05:00 IMPRESSION: 1. Cardiomegaly with increase in the interstitial lung markings involving the mid and lower lung zones likely representing edema. D/ / Raleigh Serna MD / Raleigh Serna MD Interpreting Provider: Raleigh Serna MD - EKG Data EKG attestation: Yes I reviewed and interpreted this EKG. EKG shows normal: Reports: sinus rhythm Rate: Reports: tachycardia Rhythm: Reports: NSR [place]/QRS: Reports: normal P waves: Reports: LAE When compared to previous EKG there are: changes noted (T waves upright in Lateral and septal leads now c/w 05/03/17) Interpretation: Reports: nonspecific ST-T wave changes
[2018-12-14 07:27] LABS: Bilirubin,Urine Negative (Negative); Blood,Urine Negative (Negative); Clarity,Urine Clear (Clear); Color,Urine Yellow (Yellow); Glucose,Urine (UA) Normal (Normal); Ketones,Urine Negative (Negative); Leukocyte Esterase,Urine Trace (Negative); Nitrite,Urine Negative (Negative); Protein,Urine 30 mg/dL (Neg-Trace); Specific Gravity,Urine 1.014 (1.010-1.025); Urobilinogen,Urine Normal (Normal)
[2018-12-14 07:31] LABS: Bacteria,Urine None Seen per hpf (None-Few); Hyaline Casts,Urine None Seen per lpf (None-Few); RBC,Urine 0-3 per hpf (0-3); Squamous Epithelial Cell,Urine Many per lpf (None-Few)
--- NOTE | 2018-12-14 08:32 | Internal Med History&Physical ---
Date of Encounter: 12/14/18 Time of Encounter: 08:29 Internal Medicine - H&P: HPI Chief complaint: shortness of breath History of present illness: Ms. Henderson is a 68 year old female with past medical history of COPD, hypertension, hyperlipidemia, aortic cancer status post resection and on chemotherapy, polysubstance abuse with snorting cocaine, daily alcohol and smoki ng comes in with complain of shortness of breath and was started yesterday and cough for past 2-3 days. She was admitted in November for COPD exacerbation and was treated with initially with broad-spectrum antibiotic and then with Levaquin for 5 days and prednisone. Patient uses oxygen at night but has been needing to use it during daytime as well or past month. Patient has her oncology and pulm onology in [place]. She denies any fevers but has occasional chills. Has mild chest discomfort associated with cough. Denies any sick contacts. Denies any phlegm production. Denies any abdominal pain or urinary complaints. Denies any constipation or diarrhea. She continues to drink alcohol every day as beer, Smoke every day and snores cocaine frequently last use on . Patient was interviewed had bedside on the floors. Slightly feeling better in terms of her breathing. Denies any fevers. Wants to eat. Denies any chest pain. Does not know all her medication but takes Xarelto for clot in her chemo port or in her throat which she is unclear about. Past Med Surg Social Fam HX - Past Medical History Medical history: cancer, COPD, hyperlipidemia, hypertension Additional medical history: liver ca, hypothyroid Psychiatric history: anxiety - Past Surgical History Surgical History: other Additional surgical history: Chemotherapy currently. Liver and leg surgery. - Social History Smoking Status: Current every day smoker Smokeless Tobacco Status: No Alcohol use: occasionally Drug use: cocaine, marijuana Internal Medicine - H&P: Meds Aclidinium [place] [Tudorza Pressair] 400 mcg IH BID 02/17/16 [History] Amlodipine Besylate 10 mg PO DAILY 02/17/16 [History] Calcium Citrate/Vitamin D3 [Calcium Citrate-Vit D3 Tablet] 1 each PO BID 02/16 [History] Etodolac 500 mg PO BID 02/17/16 [History] Gabapentin [Neurontin] 800 mg PO TID 02/17/16 [History] Loratadine [Claritin] 10 mg PO DAILY 02/17/16 [History] Atorvastatin Calcium [Lipitor] 80 mg PO DAILY 05/03/17 [History] Famotidine [Heartburn Prevention] 20 mg PO DAILY 05/03/17 [History] Mirtazapine [Remeron] 22.5 mg PO HS 05/03/17 [History] Pantoprazole Sodium 40 mg PO BID 05/03/17 [History] Prazosin HCl [Minipress] 2 mg PO HS 05/03/17 [History] Acetaminophen [Tylenol] 500 mg PO Q6HR PRN #20 tablet 06/12/17 [Rx] Joseph/Poly/HC *EAR* SOLN [Cortisporin *EAR* SOLN] 4 drop RIGHT EAR QID #1 solution 06/12/17 [Rx] Carvedilol 12.5 mg PO BID 11/07/18 [History] Gemcitabine HCl 11/07/18 [History] Levothyroxine 125 mcg PO DAILY 11/07/18 [History] Potassium Chloride [Klor-Con 10] 20 mg PO BID 11/07/18 [History] Rivaroxaban 20 mg PO DAILY 11/07/18 [History] Tiotropium 18 mg IH DAILY 11/07/18 [History] Trintellix 20 mg PO DAILY 11/07/18 [History] Allergy/AdvReac Type Severity Reaction Status Date / Time bupropion [From Wellbutrin] AdvReac See Verified 02/16/18 02:01 Comments enalaprilat [From Vasotec] AdvReac Hives Verified 02/16/18 02:01 tramadol AdvReac Headache Verified 02/16/18 02:01 All Systems PM: A 10-system review of systems was performed and is negative for pertinent findings except as documented above in the HPI. - Constitutional Vitals: Temp Pulse Resp BP Pulse Ox 99.4 F 91 20 148/92 93 12/14/18 04:55 12/14/18 06:44 12/14/18 06:44 12/14/18 06:44 12/14/18 06:44 Exam: Constitutional: Vitals as noted. Conversant. No Apparent Distress. Eyes : Sclera white, conjunctiva clear, no lid lag, PEARLA. ENT : Grossly normal hearing. Moist mucus membranes. No JVD, no cervical lymphadenopathy. no thyromegaly or mass. Respiratory : Diffuse wheezing in all lung [place] Cardiovascular : RRR, +S1, +S2. no murmur, gallop, rubs. No chest wall tenderness GI/Abdominal : Soft, Non-tender, Non-distended, normal bowel sounds, soft, no peritoneal signs. no orgenomegaly or mass appreciated. no hernia. Musculoskeletal: no deformity noted. no edema, pulses palpable and symmetrical in UE/LE. no calf tenderness. Neurological: AO X3, CN II-XII grossly intact, grossly normal motor and sensory exam. Involuntary movement of facial muscles Skin: No skin rash, lesions or ulcers noted. Internal Med - H&P Results - Labs CBC & Chem 7: 12/14/18 05:16 12/14/18 05:16 Labs: Short CBC 12/14/18 Range/Units 05:16 WBC 2.4 L (4.3-11.1) K/mcL Hgb 9.5 L (11.5-15.4) g/dL Hct 27.8 L (35.3-44.9) % Plt Count 146 (140-400) K/mcL Neutrophils # 1.6 (1.6-8.9) K/mcL BMP 12/14/18 05:16 Sodium 139 Potassium 3.3 L Chloride 99 Carbon Dioxide 26 BUN 18 Creatinine 1.26 H Glucose 88 Calcium 7.7 L Cardiac Enzymes 12/14/18 Range/Units 05:16 Troponin I < 0.03 (< 0.04) ng/mL Liver Function 12/14/18 Range/Units 05:16 Total Bilirubin 0.3 (0.3-1.0) mg/dL Direct Bilirubin 0.1 (0.0-0.2) mg/dL AST 25 (13-39) Units/L ALT 12 (7-52) Units/L Alkaline Phosphatase 48 (34-104) Units/L Albumin 3.6 (3.5-5.7) g/dL Urine 12/14/18 Range/Units 07:15 Urine Color Yellow (Yellow) Urine Clarity Clear (Clear) Urine pH 6.0 (5.0-8.0) pH Units Ur Specific [place] 1.014 (1.010-1.025) Urine Protein 30 H (Neg-Trace) mg/dL Urine Glucose (UA) Normal (Normal) mg/dL - ABG Interpretation ABG results: 12/14/18 06:17 ABG pH 7.43 ABG pCO2 43 ABG pO2 72 L ABG HCO3 28 H ABG Total CO2 30 H ABG O2 Saturation 95 ABG Base Excess 4 H - EKG Data -: EKG Interpreted by Myself EKG shows normal: sinus rhythm Rate: tachycardia - Impressions ITS Impressions Chest X-Ray 12/14/18 05:00 IMPRESSION: 1. Cardiomegaly with increase in the interstitial lung markings involving the mid and lower lung zones likely representing edema. D/ / Raleigh Serna MD / Raleigh Serna MD Interpreting Provider: Raleigh Serna MD - Assessment and plan (1) COPD exacerbation Current Visit: Yes Status: Acute Assessment and plan: - Chest x-ray finding unlikely to be from CHF. BNP normal. We will get chest CT. Hold Lasix - Start patient on IV Solu-Medrol and duo nebs. We will confirm home vacation and resumed. - Start patient on Levaquin given immunosuppression with decreased white count and sinus tachycardia. (2) Abnormal CXR Current Visit: Yes Status: Acute Assessment and plan: - We will get CT to further characterize lung parenchyma for interstitial lung markings. Low suspicion of CHF. May be related to her snorting cocaine. We will consider pulmonary consult depending on results. - Sent sputum cultures and blood cultures - Antibiotics as above (3) SAYDA (acute kidney injury) Current Visit: Yes Status: Acute Assessment and plan: - Obtained urine studies. - We will hold Lasix - Encourage by mouth fluid intake (4) Anemia Current Visit: No Status: Chronic Assessment and plan: - Appears stable and chronic - No ongoing bleeding - Monitor for now Qualifiers: Chronic kidney disease stage: unspecified stage Qualified Code(s): N18.9 - Chronic kidney disease, unspecified; D63.1 - Anemia in chronic kidney disease (5) Polysubstance abuse Current Visit: Yes Status: Acute Assessment and plan: - continues to smoke cigarette and snort cocaine - Discussed about sedation (6) Anxiety Current Visit: Yes Status: Acute Assessment and plan: - Resume all medication was confirmed (7) DVT prophylaxis Current Visit: No Status: Acute Assessment and plan: - Is on xarelto at home. - Will resume when confirmed - Time Spent With Patient Total time spent is greater than 50% in coordination of care (as documented) at patient's floor/unit and/or counseling patient:
[2018-12-14] MEDS ORDERED: Naloxone 0.4 MG/ML INJ IVP PRN (09:14)
[2018-12-14] MEDS ORDERED: Ipratropium/Albuterol Neb 3 ML IH PRN (09:41)
[2018-12-14] MEDS: Ipratropium/Albuterol Neb 3 ML IH SCH ×3 (09:49→21:51)
[2018-12-14] MEDS: Levofloxacin 750 MG/150 ML 750 MG/150 ML BAG IVPB SCH (11:11)
[2018-12-14 11:19] LABS: Sodium, Urine 112.6 mEq/L
[2018-12-14] MEDS: methylPREDNISolone 125 MG/2 ML VIAL IVP SCH (18:46)
[2018-12-14] MEDS ORDERED: Mirtazapine 15 MG TABLET PO SCH (21:30)
[2018-12-15] MEDS: Ipratropium/Albuterol Neb 3 ML IH SCH ×4 (04:04→21:14)
[2018-12-15 05:00] LABS: Hematocrit 26.7 % (35.3-44.9); Hemoglobin 9.2 g/dL (11.5-15.4); Immature Granulocytes % 0.6 % (0-4); Lymphocytes # 0.2 K/mcL (0.6-4.6); Lymphocytes % 12.3 %; Mean Corpuscular HGB Conc 34.5 g/dL (31.6-35.5); Mean Corpuscular Hemoglobin 34.8 pg (28.0-33.3); Mean Corpuscular Volume 101.1 fL (83.0-100.0); Mean Platelet Volume 10.2 fL (9.4-12.4); Monocytes % 1.2 %; Neutrophils # 1.4 K/mcL (1.6-8.9); Platelet Count 151 K/mcL (140-400); Red Blood Count 2.64 M/mcL (3.82-4.97); Red Cell Distribution Width 16.7 % (11.5-14.5); Segmented Neutrophils % 85.9 %
[2018-12-15 05:12] LABS: Calcium 8.1 mg/dL (8.6-10.3); Potassium 4.1 mEq/L (3.5-5.1)
[2018-12-15 05:22] LABS: Platelet Estimate Normal (Normal)
[2018-12-15] MEDS: methylPREDNISolone 125 MG/2 ML VIAL IVP SCH ×2 (06:26→18:30)
[2018-12-15] MEDS: Acetaminophen 325 MG TABLET PO PRN ×2 (10:24→15:35)
--- NOTE | 2018-12-15 13:28 | Internal Med Progress Note ---
Hospitalist Progress Note - Encounter Date of Encounter: 12/15/18 Time of Encounter: 09:00 - Subjective Interval History: Patient still has cough and shortness of breath. Complaining of headache. She has history of chronic headache at home. Denies vision change. - Exam Vitals: Temp Pulse Resp BP Pulse Ox 98.6 F 95 18 131/83 93 12/15/18 11:50 12/15/18 11:50 12/15/18 11:50 12/15/18 11:50 12/15/18 11:50 Exam: Pt is AAO x 3, in NAD HEENT: NC/AT, PERRL Neck: Supple, no JVD, no LAD Lungs: Diffuse the wheezes bilaterally Heart: S1S2, RRR Abd: Soft, nontender, BS present Ext: ROM wnl, no pedal edema Neuro: No focal deficit - Assessment and Plan (1) DVT prophylaxis Current Visit: No Status: Acute Assessment and Plan: Cont home medication Xarelto (2) Anemia Current Visit: No Status: Chronic Assessment and Plan: - Appears stable and chronic - No ongoing bleeding - Monitor for now (3) COPD exacerbation Current Visit: Yes Status: Acute Assessment and Plan: Patient has history of COPD. Has wheezing. Consider COPD exacerbation. Co ntinue antibiotics, steroids, and DuoNeb treatment. (4) SAYDA (acute kidney injury) Current Visit: Yes Status: Acute Assessment and Plan: - Obtained urine studies. - We will hold Lasix - Encourage by mouth fluid intake - Avoid the nephrotoxic medications (5) Polysubstance abuse Current Visit: Yes Status: Acute Assessment and Plan: - continues to smoke cigarette and snort cocaine - Discussed about cessation (6) Liver cancer Current Visit: Yes Status: Acute Assessment and Plan: Patient is following oncologist in [place]. Signs of metastasis to lung and lymph node. Continue follow-up with oncology as outpatient. (7) Hypothyroid Current Visit: No Status: Chronic Assessment and Plan: Continue home medications (8) Immunosuppressed due to chemotherapy Current Visit: No Status: Chronic Assessment and Plan: Close monitor WBC level. Continue follow-up with oncology as outpatient - Time Spent with Patient Total time spent is greater than 50% in coordination of care (as documented) at patient's floor/unit and/or counseling patient: 30 minutes 25 - 35 minutes Plan of Care Discussed with: patient Internal Medicine: Result - Labs CBC & Chem 7: 12/15/18 04:22 12/15/18 04:22 Labs: Short CBC 12/15/18 Range/Units 04:22 WBC 1.6 L (4.3-11.1) K/mcL Hgb 9.2 L (11.5-15.4) g/dL Hct 26.7 L (35.3-44.9) % Plt Count 151 (140-400) K/mcL Neutrophils # 1.4 L (1.6-8.9) K/mcL BMP 12/15/18 04:22 Sodium 134 L Potassium 4.1 Chloride 97 L Carbon Dioxide 28 BUN 24 H Creatinine 1.29 H Glucose 248 H Calcium 8.1 L - ABG Interpretation ABG results: ABG ABG pH 7.43 pH Units (7.32-7.45) 12/14/18 06:17 ABG pCO2 43 mmHg (35-45) 12/14/18 06:17 ABG pO2 72 mmHg (85-104) L 12/14/18 06:17 ABG O2 Saturation 95 % (95-98) 12/14/18 06:17 - Impressions Impressions Chest CT 12/14/18 09:42 IMPRESSION: 1. Cirrhotic liver. Similar appearance of subtle hypodense liver lesions potentially representing hepatocellular carcinoma, cholangiocarcinoma, benign neoplasms, or confluent fibrosis. Recommend further evaluation liver protocol MRI (with nonhepatobiliary contrast agent) or liver protocol CT. 2. New findings of peritoneal carcinomatosis adjacent to the liver. 3. Increased size of a 7.6 cm x 4.3 cm lesion in the left epicardial fat with abutment of the pericardium, potentially an epicardial sylvie metastasis or pericardial metastasis. A primary neoplasm is considered less likely. 4. New bilateral pulmonary metastases measure up to 0.5 cm. 5. Moderate to severe centrilobular emphysema. 6. Mild bronchial wall thickening potentially due to pulmonary vascular congestion, reactive airways disease, or bronchitis. D/ / Kyle Dominguez MD / Kyle Dominguez MD Interpreting Provider: Kyle Dominguez MD Echocardiogram 12/14/18 09:42 Impressions: LVEF 50-55%. Moderate concentric left ventricular hypertrophy. Mild left ventricular diastolic dysfunction. Normal right ventricular structure and function. Moderate tricuspid regurgitation with eccentric jet. Moderate pulmonary hypertension. Left Ventricular Wall Motion: Rest Echo Findings The apex, apical lateral and mid anterior lateral carrasco were not visualized. All other wall segments showed normal motion. Findings: Study Quality * Technically sub-optimal due to poor echocardiographic windows. ECG Findings * Normal sinus rhythm. Left Ventricle * Moderate concentric left ventricular hypertrophy. * LVEF 50-55%. * Mild left ventricular diastolic dysfunction. Right Ventricle * Normal right ventricular structure and function. Left Atrium * Normal left atrial size. Right Atrium * Moderately dilated right atrium. Interatrial Septum * No evidence of PFO by color Doppler. Aortic Valve * Aortic valve not well visualized. * No aortic regurgitation. * No aortic stenosis. Mitral Valve * Normal mitral valve structure. * No mitral regurgitation. * No mitral stenosis. Tricuspid Valve * Moderate tricuspid regurgitation with eccentric jet. * Estimated RVSP is 61 mmHg. * Moderate pulmonary hypertension. * Estimated RA pressure is 5 mmHg. Pulmonic Valve * Pulmonic valve is not well visualized. Aorta * Normally sized aortic root. Pericardium * The pericardium appears normal. IVC * Normal IVC dimensions and inspiratory collapse. Consult Discharge Plan - Plan Referrals: NONE,PCP [Primary Care Provider] - (2) Anemia Qualifiers: Chronic kidney disease stage: unspecified stage Qualified Code(s): N18.9 - Chronic kidney disease, unspecified; D63.1 - Anemia in chronic kidney disease (6) Liver cancer Qualifiers: Liver malignancy type: unspecified liver malignancy Qualified Code(s): C22.9 - Malignant neoplasm of liver, not specified as primary or secondary (7) Hypothyroid Qualifiers: Hypothyroidism type: unspecified Qualified Code(s): E03.9 - Hypothyroidism, unspecified
[2018-12-15] MEDS: *HR* Rivaroxaban 10 MG TABLET PO SCH (15:35)
[2018-12-15] MEDS: Acetylcysteine 10% 2 ML INHSOL IH SCH ×2 (16:12→21:15)
[2018-12-15] MEDS: diazePAM 2 MG TABLET PO PRN (18:55)
[2018-12-15] MEDS: Gabapentin 400 MG CAPSULE PO SCH (21:48)
[2018-12-15] MEDS: Mirtazapine 15 MG TABLET PO SCH (21:49)
[2018-12-16 03:39] LABS: Red Cell Distribution Width 16.6 % (11.5-14.5)
[2018-12-16 03:40] LABS: Hemoglobin 8.6 g/dL (11.5-15.4); Immature Granulocytes % 6.5 % (0-4); Lymphocytes # 0.3 K/mcL (0.6-4.6); Lymphocytes % 16.9 %; Mean Corpuscular HGB Conc 34.4 g/dL (31.6-35.5); Mean Corpuscular Hemoglobin 34.8 pg (28.0-33.3); Mean Corpuscular Volume 101.2 fL (83.0-100.0); Mean Platelet Volume 10.2 fL (9.4-12.4); Monocytes % 1.3 %; Platelet Count 120 K/mcL (140-400); Red Blood Count 2.47 M/mcL (3.82-4.97); Segmented Neutrophils % 75.3 %
[2018-12-16 03:42] LABS: Neutrophils # 1.1 K/mcL (1.6-8.9)
[2018-12-16 03:59] LABS: Calcium 8.6 mg/dL (8.6-10.3); Potassium 4.6 mEq/L (3.5-5.1)
[2018-12-16] MEDS: Acetylcysteine 10% 2 ML INHSOL IH SCH ×4 (04:20→22:02)
[2018-12-16] MEDS: Ipratropium/Albuterol Neb 3 ML IH SCH ×4 (04:20→22:01)
[2018-12-16 04:22] LABS: Large Platelets Present (Not Present); Platelet Estimate Normal (Normal)
[2018-12-16] MEDS: methylPREDNISolone 125 MG/2 ML VIAL IVP SCH ×2 (06:03→17:16)
[2018-12-16] MEDS: Gabapentin 400 MG CAPSULE PO SCH ×2 (10:34→20:15)
[2018-12-16] MEDS: ARIPiprazole 5 MG TABLET PO SCH (10:34)
[2018-12-16] MEDS: Levofloxacin 750 MG/150 ML 750 MG/150 ML BAG IVPB SCH (10:35)
[2018-12-16] MEDS: Loratadine 10 MG TABLET PO SCH (10:35)
[2018-12-16] MEDS: amLODIPine 5 MG TABLET PO SCH (10:35)
[2018-12-16] MEDS: *HR* Rivaroxaban 10 MG TABLET PO SCH (16:51)
--- NOTE | 2018-12-16 18:16 | Internal Med Progress Note ---
Hospitalist Progress Note - Encounter Date of Encounter: 12/16/18 Time of Encounter: 09:00 - Subjective Interval History: Patient still has cough and shortness of breath. Looks weak. No fever. Vitals are stable - Exam Vitals: Temp Pulse Resp BP Pulse Ox 98.4 F 82 20 158/94 99 12/16/18 14:03 12/16/18 14:03 12/16/18 15:57 12/16/18 14:03 12/16/18 15:57 Exam: Pt is AAO x 3, in NAD HEENT: NC/AT, PERRL Neck: Supple, no JVD, no LAD Lungs: Scattered wheezes bilaterally Heart: S1S2, RRR Abd: Soft, nontender, BS present Ext: ROM wnl, no pedal edema Neuro: No focal deficit - Assessment and Plan (1) DVT prophylaxis Current Visit: No Status: Acute Assessment and Plan: Cont home medication Xarelto (2) Anemia Current Visit: No Status: Chronic Assessment and Plan: - Appears stable and chronic - No ongoing bleeding - Monitor for now (3) COPD exacerbation Current Visit: Yes Status: Acute Assessment and Plan: Patient has history of COPD. Has wheezing. Consider COPD exacerbation. Continue antibiotics, steroids, and DuoNeb treatment. (4) SAYDA (acute kidney injury) Current Visit: Yes Status: Acute Assessment and Plan: Cr 1.25 today. Baseline 0.83 - We will cont to hold Lasix - Encourage by mouth fluid intake - Avoid the nephrotoxic medications (5) Polysubstance abuse Current Visit: Yes Status: Acute Assessment and Plan: - continues to smoke cigarette and snort cocaine - Discussed about cessation (6) Liver cancer Current Visit: Yes Status: Acute Assessment and Plan: Patient is following oncologist in [place]. Signs of metastasis to lung and lymph node. Patient is aware. Continue follow-up with oncology as outpatient. (7) Hypothyroid Current Visit: No Status: Chronic Assessment and Plan: Continue home medications (8) Immunosuppressed due to chemotherapy Current Visit: No Status: Chronic Assessment and Plan: Close monitor WBC level. Continue follow-up with oncology as outpatient - Time Spent with Patient Total time spent is greater than 50% in coordination of care (as documented) at patient's floor/unit and/or counseling patient: 30 min 25 - 35 minutes Plan of Care Discussed with: patient Internal Medicine: Result - Labs CBC & Chem 7: 02/12/19 03:31 12/16/18 03:31 Labs: Short CBC 12/16/18 Range/Units 03:31 WBC 1.5 L (4.3-11.1) K/mcL Hgb 8.6 L (11.5-15.4) g/dL Hct 25.0 L (35.3-44.9) % Plt Count 120 L (140-400) K/mcL Neutrophils # 1.1 L (1.6-8.9) K/mcL BMP 12/16/18 03:31 Sodium 136 Potassium 4.6 Chloride 100 Carbon Dioxide 27 BUN 26 H Creatinine 1.25 H Glucose 188 H Calcium 8.6 - ABG Interpretation ABG results: ABG ABG pH 7.43 pH Units (7.32-7.45) 12/14/18 06:17 ABG pCO2 43 mmHg (35-45) 12/14/18 06:17 ABG pO2 72 mmHg (85-104) L 12/14/18 06:17 ABG O2 Saturation 95 % (95-98) 12/14/18 06:17 Consult Discharge Plan - Plan Referrals: NONE,PCP [Primary Care Provider] - (2) Anemia Qualifiers: Chronic kidney disease stage: unspecified stage Qualified Code(s): N18.9 - Chronic kidney disease, unspecified; D63.1 - Anemia in chronic kidney disease (6) Liver cancer Qualifiers: Liver malignancy type: unspecified liver malignancy Qualified Code(s): C22.9 - Malignant neoplasm of liver, not specified as primary or secondary (7) Hypothyroid Qualifiers: Hypothyroidism type: unspecified Qualified Code(s): E03.9 - Hypothyroidism, unspecified
[2018-12-16] MEDS: Mirtazapine 15 MG TABLET PO SCH (20:15)
[2018-12-16] MEDS: diazePAM 2 MG TABLET PO PRN (20:18)
--- NOTE | 2018-12-16 20:21 | Electrocardiograph Report ---
[address] [address] Test Date: 2018-12-14 Pat Name: Katrina Henderson Department: EXAM1 Room: 3A45 Gender: F [employer]: : 1950 Requested By: Ayesha Briones Order Number: [id number] Reading MD: Fanta Figueroa Measurements Intervals [place] Rate: 100 P: 50 MA: 156 QRS: -6 QRSD: 85 T: 62 QT: 362 QTc: 460 Interpretive Statements Sinus tachycardia Ventricular premature complex Probable left atrial enlargement Borderline low voltage, extremity leads Baseline artifact Electronically Signed On 12-16-2018 20:19:18 EST by Fanta Figueroa
[2018-12-17 03:31] LABS: Immature Granulocytes % 1.3 % (0-4)
[2018-12-17 03:32] LABS: Hematocrit 24.8 % (35.3-44.9); Hemoglobin 8.4 g/dL (11.5-15.4); Lymphocytes # 0.4 K/mcL (0.6-4.6); Lymphocytes % 26.6 %; Mean Corpuscular HGB Conc 33.9 g/dL (31.6-35.5); Mean Corpuscular Hemoglobin 34.9 pg (28.0-33.3); Mean Corpuscular Volume 102.9 fL (83.0-100.0); Monocytes # 0.1 K/mcL (0.0-1.3); Monocytes % 3.2 %; Neutrophils # 1.1 K/mcL (1.6-8.9); Nucleated Red Blood Cells 1.3 /100 WBC (0); Platelet Count 117 K/mcL (140-400); Red Blood Count 2.41 M/mcL (3.82-4.97); Red Cell Distribution Width 16.4 % (11.5-14.5); Segmented Neutrophils % 68.9 %
[2018-12-17 03:34] LABS: Calcium 8.4 mg/dL (8.6-10.3); Potassium 4.7 mEq/L (3.5-5.1)
[2018-12-17] MEDS: Ipratropium/Albuterol Neb 3 ML IH SCH ×4 (03:52→21:47)
[2018-12-17] MEDS: Acetylcysteine 10% 2 ML INHSOL IH SCH ×4 (03:52→21:47)
[2018-12-17 03:55] LABS: Platelet Estimate Decreased (Normal)
[2018-12-17] MEDS: MethylPREDNISolone 40 MG/ML VIAL IVP SCH ×2 (05:20→17:27)
[2018-12-17] MEDS: ARIPiprazole 5 MG TABLET PO SCH (07:56)
[2018-12-17] MEDS: Gabapentin 400 MG CAPSULE PO SCH ×2 (07:57→20:54)
[2018-12-17] MEDS: Loratadine 10 MG TABLET PO SCH (07:57)
[2018-12-17] MEDS: amLODIPine 5 MG TABLET PO SCH (07:57)
[2018-12-17] MEDS: Acetaminophen 325 MG TABLET PO PRN ×2 (13:16→20:54)
--- NOTE | 2018-12-17 14:28 | Internal Med Progress Note ---
Hospitalist Progress Note - Encounter Date of Encounter: 12/17/18 Time of Encounter: 09:00 - Subjective Interval History: Patient still has cough and shortness of breath. SOB slightly improved. Pt said she feels better today. No fever. Vitals are stable - Exam Vitals: Temp Pulse Resp BP Pulse Ox 97.8 F 80 16 137/86 98 12/17/18 11:38 12/17/18 11:38 12/17/18 11:38 12/17/18 11:38 12/17/18 11:38 Exam: Pt is AAO x 3, in NAD HEENT: NC/AT, PERRL Neck: Supple, no JVD, no LAD Lungs: Scattered wheezes bilaterally Heart: S1S2, RRR Abd: Soft, nontender, BS present Ext: ROM wnl, no pedal edema Neuro: No focal deficit - Assessment and Plan (1) DVT prophylaxis Current Visit: No Status: Acute Assessment and Plan: Cont home medication Xarelto (2) Anemia Current Visit: No Status: Chronic Assessment and Plan: - Appears stable and chronic - No ongoing bleeding - Monitor for now (3) COPD exacerbation Current Visit: Yes Status: Acute Assessment and Plan: Patient has history of COPD. Has wheezing. Consider COPD exacerbation. Continue antibiotics, steroids, and DuoNeb treatment. Gradually tapered down steroids. - PTOT evaluation recommend rehabilitation discharge, forensic social worker is working on it. (4) SAYDA (acute kidney injury) Current Visit: Yes Status: Acute Assessment and Plan: Cr stable at around 1.25 - We will cont to hold Lasix - Encourage by mouth fluid intake - Avoid the nephrotoxic medications (5) Polysubstance abuse Current Visit: Yes Status: Acute Assessment and Plan: - continues to smoke cigarette and snort cocaine - Discussed about cessation (6) Liver cancer Current Visit: Yes Status: Acute Assessment and Plan: Patient is following oncologist in [place]. Signs of metastasis to lung and lymph node. Patient is aware. Continue follow-up with oncology as outpatient. (7) Hypothyroid Current Visit: No Status: Chronic Assessment and Plan: Continue home medications (8) Immunosuppressed due to chemotherapy Current Visit: No Status: Chronic Assessment and Plan: Close monitor WBC level. Continue follow-up with oncology as outpatient - Time Spent with Patient Total time spent is greater than 50% in coordination of care (as documented) at patient's floor/unit and/or counseling patient: 30 min 25 - 35 minutes Plan of Care Discussed with: patient Internal Medicine: Result - Labs CBC & Chem 7: 12/17/18 02:55 12/17/18 02:55 Labs: Short CBC 12/17/18 Range/Units 02:55 WBC 1.6 L (4.3-11.1) K/mcL Hgb 8.4 L (11.5-15.4) g/dL Hct 24.8 L (35.3-44.9) % Plt Count 117 L (140-400) K/mcL Neutrophils # 1.1 L (1.6-8.9) K/mcL BMP 12/17/18 02:55 Sodium 136 Potassium 4.7 Chloride 101 Carbon Dioxide 29 BUN 28 H Creatinine 1.28 H Glucose 155 H Calcium 8.4 L - ABG Interpretation ABG results: ABG ABG pH 7.43 pH Units (7.32-7.45) 12/14/18 06:17 ABG pCO2 43 mmHg (35-45) 12/14/18 06:17 ABG pO2 72 mmHg (85-104) L 12/14/18 06:17 ABG O2 Saturation 95 % (95-98) 12/14/18 06:17 Consult Discharge Plan - Plan Referrals: NONE,PCP [Primary Care Provider] - (2) Anemia Qualifiers: Chronic kidney disease stage: unspecified stage Qualified Code(s): N18.9 - Chronic kidney disease, unspecified; D63.1 - Anemia in chronic kidney disease (6) Liver cancer Qualifiers: Liver malignancy type: unspecified liver malignancy Qualified Code(s): C22.9 - Malignant neoplasm of liver, not specified as primary or secondary (7) Hypothyroid Qualifiers: Hypothyroidism type: unspecified Qualified Code(s): E03.9 - Hypothyroidism, unspecified
[2018-12-17] MEDS: *HR* Rivaroxaban 10 MG TABLET PO SCH (17:27)
[2018-12-17] MEDS: Mirtazapine 15 MG TABLET PO SCH (20:54)
[2018-12-17] MEDS: diazePAM 2 MG TABLET PO PRN (20:55)
[2018-12-18 04:09] LABS: Hematocrit 25.1 % (35.3-44.9); Hemoglobin 8.5 g/dL (11.5-15.4); Mean Corpuscular HGB Conc 33.9 g/dL (31.6-35.5)
[2018-12-18] MEDS: Ipratropium/Albuterol Neb 3 ML IH SCH ×4 (04:09→21:40)
[2018-12-18] MEDS: Acetylcysteine 10% 2 ML INHSOL IH SCH ×4 (04:10→21:40)
[2018-12-18 04:11] LABS: Immature Granulocytes % 4.6 % (0-4); Immature Platelets 1.7 % (1.1-6.1); Lymphocytes # 0.8 K/mcL (0.6-4.6); Lymphocytes % 25.6 %; Mean Corpuscular Hemoglobin 34.8 pg (28.0-33.3); Mean Corpuscular Volume 102.9 fL (83.0-100.0); Mean Platelet Volume 10.2 fL (9.4-12.4); Monocytes # 0.1 K/mcL (0.0-1.3); Monocytes % 4.3 %; Nucleated Red Blood Cells 2.3 /100 WBC (0); Platelet Count 100 K/mcL (140-400); Red Blood Count 2.44 M/mcL (3.82-4.97); Red Cell Distribution Width 16.2 % (11.5-14.5); Segmented Neutrophils % 65.5 %
[2018-12-18 04:29] LABS: BUN/Creatinine Ratio 25 (6-26); Blood Urea Nitrogen 25 mg/dL (8-23); Calcium 8.1 mg/dL (8.6-10.3); Carbon Dioxide 30 mEq/L (23-29); Chloride 104 mEq/L (98-107); Glucose 188 mg/dL (70-105); Osmolality,Calculated 293 (280-300); Potassium 4.1 mEq/L (3.5-5.1); Sodium 137 mEq/L (136-145); eGFR For Non-African Americans 54 (> 60)
[2018-12-18 04:53] LABS: Platelet Estimate Decreased (Normal); Reactive Lymphocytes Present (Not Present)
[2018-12-18] MEDS: MethylPREDNISolone 40 MG/ML VIAL IVP SCH (06:14)
[2018-12-18] MEDS: Acetaminophen 325 MG TABLET PO PRN ×2 (07:33→21:16)
[2018-12-18] MEDS: Loratadine 10 MG TABLET PO SCH (07:34)
[2018-12-18] MEDS: ARIPiprazole 5 MG TABLET PO SCH (07:34)
[2018-12-18] MEDS: Gabapentin 400 MG CAPSULE PO SCH ×2 (07:35→21:15)
[2018-12-18] MEDS: amLODIPine 5 MG TABLET PO SCH (07:35)
[2018-12-18] MEDS ORDERED: levoFLOXacin 750 MG TABLET PO SCH (09:00)
--- NOTE | 2018-12-18 14:36 | Internal Med Progress Note ---
Hospitalist Progress Note - Encounter Date of Encounter: 12/18/18 Time of Encounter: 09:00 - Subjective Interval History: Patient feels better. Mild SOB probably baseline. No fever. Vitals are stable - Exam Vitals: Temp Pulse Resp BP Pulse Ox 98.6 F 82 14 154/85 97 12/18/18 14:28 12/18/18 14:28 12/18/18 14:28 12/18/18 14:28 12/18/18 14:28 Exam: Pt is AAO x 3, in NAD HEENT: NC/AT, PERRL Neck: Supple, no JVD, no LAD Lungs: Scattered wheezes on left side Heart: S1S2, RRR Abd: Soft, nontender, BS present Ext: ROM wnl, no pedal edema Neuro: No focal deficit - Assessment and Plan (1) DVT prophylaxis Current Visit: No Status: Acute Assessment and Plan: Cont home medication Xarelto (2) Anemia Current Visit: No Status: Chronic Assessment and Plan: - Appears stable and chronic - No ongoing bleeding - Monitor for now (3) COPD exacerbation Current Visit: Yes Status: Acute Assessment and Plan: Patient has history of COPD. Has wheezing. Consider COPD exacerbation. Continue antibiotics, steroids, and DuoNeb treatment. Gradually tapered down steroids. - PTOT evaluation recommend rehabilitation discharge, however, pt refuse ECF and prefer to go home. Pt lives with sister and brother. Will arrange HH for her. - Steroid change to po, discharge plan if remains stable. (4) SAYDA (acute kidney injury) Current Visit: Yes Status: Acute Assessment and Plan: Cr improved, 1.02 today - We will cont to hold Lasix - Encourage by mouth fluid intake - Avoid the nephrotoxic medications (5) Polysubstance abuse Current Visit: Yes Status: Acute Assessment and Plan: - continues to smoke cigarette and snort cocaine - Discussed about cessation (6) Liver cancer Current Visit: Yes Status: Acute Assessment and Plan: Patient is following oncologist in [place]. Signs of metastasis to lung and lymph node. Patient is aware. Continue follow-up with oncology as outpatient. (7) Hypothyroid Current Visit: No Status: Chronic Assessment and Plan: Continue home medications (8) Immunosuppressed due to chemotherapy Current Visit: No Status: Chronic Assessment and Plan: Close monitor WBC level. Continue follow-up with oncology as outpatient - Time Spent with Patient Total time spent is greater than 50% in coordination of care (as documented) at patient's floor/unit and/or counseling patient: 30 min 25 - 35 minutes Plan of Care Discussed with: patient Internal Medicine: Result - Labs CBC & Chem 7: 12/18/18 03:58 12/18/18 03:58 Labs: Short CBC 12/18/18 Range/Units 03:58 WBC 3.1 L D (4.3-11.1) K/mcL Hgb 8.5 L (11.5-15.4) g/dL Hct 25.1 L (35.3-44.9) % Plt Count 100 L (140-400) K/mcL Neutrophils # 2.0 (1.6-8.9) K/mcL BMP 12/18/18 03:58 Sodium 137 Potassium 4.1 Chloride 104 Carbon Dioxide 30 H BUN 25 H Creatinine 1.02 Glucose 188 H Calcium 8.1 L - ABG Interpretation ABG results: ABG ABG pH 7.43 pH Units (7.32-7.45) 12/14/18 06:17 ABG pCO2 43 mmHg (35-45) 12/14/18 06:17 ABG pO2 72 mmHg (85-104) L 12/14/18 06:17 ABG O2 Saturation 95 % (95-98) 12/14/18 06:17 Consult Discharge Plan - Plan Referrals: NONE,PCP [Primary Care Provider] - (2) Anemia Qualifiers: Chronic kidney disease stage: unspecified stage Qualified Code(s): N18.9 - Chronic kidney disease, unspecified; D63.1 - Anemia in chronic kidney disease (6) Liver cancer Qualifiers: Liver malignancy type: unspecified liver malignancy Qualified Code(s): C22.9 - Malignant neoplasm of liver, not specified as primary or secondary (7) Hypothyroid Qualifiers: Hypothyroidism type: unspecified Qualified Code(s): E03.9 - Hypothyroidism, unspecified
[2018-12-18] MEDS: *HR* Rivaroxaban 10 MG TABLET PO SCH (16:52)
[2018-12-18] MEDS: Mirtazapine 15 MG TABLET PO SCH (21:15)
[2018-12-18] MEDS: diazePAM 2 MG TABLET PO PRN (21:17)
[2018-12-19] MEDS: Ipratropium/Albuterol Neb 3 ML IH SCH ×3 (03:53→15:48)
[2018-12-19] MEDS: Acetylcysteine 10% 2 ML INHSOL IH SCH ×3 (03:54→15:48)
[2018-12-19] MEDS ORDERED: predniSONE 20 MG TABLET PO SCH (09:00)
[2018-12-19] MEDS: amLODIPine 5 MG TABLET PO SCH (09:25)
[2018-12-19] MEDS: Loratadine 10 MG TABLET PO SCH (09:25)
[2018-12-19] MEDS: ARIPiprazole 5 MG TABLET PO SCH (09:26)
[2018-12-19] MEDS: Acetaminophen 325 MG TABLET PO PRN (09:26)
[2018-12-19] MEDS: Gabapentin 400 MG CAPSULE PO SCH (09:32)
[2018-12-19 10:36] VITALS: BP 152/91
--- NOTE | 2018-12-19 12:25 | Discharge Summary ---
- NOTES TO OUTPATIENT PROVIDER Notes to Outpatient Provider: 1. Continue taper down steroid, cont po levaquin for 6 more days. Orders not resulted at time of discharge: Pending orders 12/14/18 09:31 Respiratory Infection Panel [MOLMIC] Stat Date of Encounter: 12/19/18 Time of Encounter: 10:00 - Discharge Diagnosis (1) DVT prophylaxis Priority: Secondary Status: Acute (2) Anemia Priority: Secondary Status: Chronic Qualifiers: Chronic kidney disease stage: unspecified stage Qualified Code(s): N18.9 - Chronic kidney disease, unspecified; D63.1 - Anemia in chronic kidney disease (3) COPD exacerbation Priority: Primary Status: Acute (4) SAYDA (acute kidney injury) Priority: Primary Status: Acute (5) Polysubstance abuse Priority: Secondary Status: Acute (6) Liver cancer Priority: Secondary Status: Acute Qualifiers: Liver malignancy type: unspecified liver malignancy Qualified Code(s): C22.9 - Malignant neoplasm of liver, not specified as primary or secondary (7) Hypothyroid Priority: Secondary Status: Chronic Qualifiers: Hypothyroidism type: unspecified Qualified Code(s): E03.9 - Hypothyroidism, unspecified (8) Immunosuppressed due to chemotherapy Priority: Secondary Status: Chronic Hospital course: Ms. Henderson is a 68 year old female present to ER for worsening shortness of breath. History of COPD. Patient also has history of liver cancer on chemotherapy now. Patient has wheezing. Patient was treated as COPD exacerbation with antibiotic, steroid, and bronchodilator. After treatment, patient symptoms has improved. Less cough. Shortness of breasts back to baseline. Will continue taper down steroids by mouth and antibiotic by mouth. Patient has home oxygen already. PTOT evaluation recommend ECF initially however patient refused and would like to go home with home health. Home health arranged by social work. Patient was prescribed nebulizer machine. Patient will DC home, she lives with brother and sister. Continue follow-up with PCP as outpatient. Continue follow-up her oncology in [place] for liver cancer. Patient was seen and examined today. Shortness of breath has improved, almost at baseline. Vitals are stable. SPO2 97% in room air. No wheezing today. In no acute respiratory distress. Will DC patient home with home health. Discharge discussed with: patient - Time Spent with Patient Total time spent providing and/or coordinating discharge services: 40 minutes Greater than 30 minutes - Discharge Medications Prescriptions: Acetylcysteine 10% 2 ml IH [id number] 7 Days #28 inhsol Ipratropium/Albuterol Neb [Duoneb] 3 ml IH [id number] 7 Days #28 inhsol Gabapentin [Neurontin] 400 mg PO BID 30 Days #60 capsule levoFLOXacin [Levaquin] 750 mg PO Q48H 6 Days #3 tablet predniSONE [PredniSONE] See Taper PO DAILY 9 Days #12 tablet Home Medications: Amlodipine Besylate 10 mg PO DAILY 02/17/16 [History] Loratadine [Claritin] 10 mg PO DAILY 02/17/16 [History] Atorvastatin Calcium [Lipitor] 80 mg PO DAILY 05/03/17 [History] Mirtazapine [Remeron] 22.5 mg PO HS 05/03/17 [History] Pantoprazole Sodium 40 mg PO BID 05/03/17 [History] Carvedilol 12.5 mg PO BID 11/07/18 [History] Gemcitabine HCl 11/07/18 [History] Levothyroxine 125 mcg PO DAILY 11/07/18 [History] Potassium Chloride [Klor-Con 10] 20 mg PO BID 11/07/18 [History] Rivaroxaban 20 mg PO DAILY 11/07/18 [History] Trintellix 20 mg PO DAILY 11/07/18 [History] ARIPiprazole [Abilify] 7.5 mg PO DAILY 12/14/18 [History] Nicotine [Nicotine Patch] 21 mcg TP DAILY 12/14/18 [History] Promethazine [Phenergan] 25 mg PO Q6HR 12/14/18 [History] diazePAM [Valium] 2 mg PO DAILY PRN 12/14/18 [History] Acetaminophen [Tylenol] 650 mg PO Q6HR PRN 12/15/18 [History] Albuterol Sulfate [Albuterol Inhaler] 1 puff IN Q6H PRN 12/15/18 [History] Prazosin HCl [Minipress] 10 mg PO HS 12/15/18 [History] Tiotropium [place] [Spiriva Respimat] 5 mcg IN DAILY 12/15/18 [History] Acetylcysteine 10% 2 ml IH [id number] 7 Days #28 inhsol 12/19/18 [Rx] Gabapentin [Neurontin] 400 mg PO BID 30 Days #60 capsule 12/19/18 [Rx] Ipratropium/Albuterol Neb [Duoneb] 3 ml IH [id number] 7 Days #28 inhsol 12/19/18 [Rx] levoFLOXacin [Levaquin] 750 mg PO Q48H 6 Days #3 tablet 12/19/18 [Rx] predniSONE [PredniSONE] See Taper PO DAILY 9 Days #12 tablet 12/19/18 [Rx] Allergies/Adverse Reactions: Allergy/AdvReac Type Severity Reaction Status Date / Time bupropion [From Wellbutrin] AdvReac See Verified 02/16/18 02:01 Comments enalaprilat [From Vasotec] AdvReac Hives Verified 02/16/18 02:01 tramadol AdvReac Headache Verified 02/16/18 02:01 Date of admission: 12/14/18 09:14 Primary care physician: PCP NONE Consults: 12/15/18 09:21 Consult to Nurse Navigator [CONS] Routine Comment: copd 12/16/18 10:39 Consult to Occupational Therapy [CONS] Routine Comment: Evaluate, develop and implement POC Reason for Consult: weakness Does patient have active BEDREST order?: No Is patient medically & hemodynamically stable?: Yes Consult to Physical Therapy [CONS] Routine Comment: Evaluate, develop and implement POC Reason for Consult: weakness Does patient have active BEDREST order?: No Is patient medically & hemodynamically stable?: Yes Discharging clinician: Janki Rivera Anticipated date of discharge: 12/19/18 - Constitutional Vitals: Temp Pulse Resp BP Pulse Ox 98.3 F 78 15 152/91 97 12/19/18 10:32 12/19/18 10:32 12/19/18 10:32 12/19/18 10:32 12/19/18 10:32 Exam: Pt is AAO x 3, in NAD HEENT: NC/AT, PERRL Neck: Supple, no JVD, no LAD Lungs: Coarse sound bilaterally, no wheezing or rhonchi Heart: S1S2, RRR Abd: Soft, nontender, BS present Ext: ROM wnl, no pedal edema Neuro: No focal deficit - Patient Status Disposition: Home Health Service Condition: Fair Functional capacity at discharge: uses cane/walker Overall status at discharge: patient is progressing back to baseline - Discharge Instructions Follow Up With: NONE,PCP [Primary Care Provider] - - Diet and Activity Activity: as per physical therapy, increase activity as tolerated Diet: advance to your usual diet, regular diet
--- NOTE | 2018-12-19 12:31 | Physician Discharge Referral ---
Home Health/Hosp Referral Info Transfer to: Home Health Provider in Charge Post Discharge: PCP - Diagnosis (1) DVT prophylaxis Status: Acute (2) Anemia Status: Chronic (3) COPD exacerbation Status: Acute (4) SAYDA (acute kidney injury) Status: Acute (5) Polysubstance abuse Status: Acute (6) Liver cancer Status: Acute (7) Hypothyroid Status: Chronic (8) Immunosuppressed due to chemotherapy Status: Chronic - Respiratory Orders Oxygen / L per min (2) Smoking Cessation: Smoking cessation has been advised. For more information, call the [place] Tobacco Quit Line at 8-619-GKMA-NOW. - Diet/Nutrition Diet/Nutrition Orders: Regular - Services Needed Following services are medically necessary services: Nursing, Home Health Aide, Physical Therapy, Occupational Therapy - Transfer Medications Prescriptions: Acetylcysteine 10% 2 ml IH [id number] 7 Days #28 inhsol Ipratropium/Albuterol Neb [Duoneb] 3 ml IH [id number] 7 Days #28 inhsol Gabapentin [Neurontin] 400 mg PO BID 30 Days #60 capsule levoFLOXacin [Levaquin] 750 mg PO Q48H 6 Days #3 tablet predniSONE [PredniSONE] See Taper PO DAILY 9 Days #12 tablet Home Medications: Amlodipine Besylate 10 mg PO DAILY 02/17/16 [History] Loratadine [Claritin] 10 mg PO DAILY 02/17/16 [History] Atorvastatin Calcium [Lipitor] 80 mg PO DAILY 05/03/17 [History] Mirtazapine [Remeron] 22.5 mg PO HS 05/03/17 [History] Pantoprazole Sodium 40 mg PO BID 05/03/17 [History] Carvedilol 12.5 mg PO BID 11/07/18 [History] Gemcitabine HCl 11/07/18 [History] Levothyroxine 125 mcg PO DAILY 11/07/18 [History] Potassium Chloride [Klor-Con 10] 20 mg PO BID 11/07/18 [History] Rivaroxaban 20 mg PO DAILY 11/07/18 [History] Trintellix 20 mg PO DAILY 11/07/18 [History] ARIPiprazole [Abilify] 7.5 mg PO DAILY 12/14/18 [History] Nicotine [Nicotine Patch] 21 mcg TP DAILY 12/14/18 [History] Promethazine [Phenergan] 25 mg PO Q6HR 12/14/18 [History] diazePAM [Valium] 2 mg PO DAILY PRN 12/14/18 [History] Acetaminophen [Tylenol] 650 mg PO Q6HR PRN 12/15/18 [History] Albuterol Sulfate [Albuterol Inhaler] 1 puff IN Q6H PRN 12/15/18 [History] Prazosin HCl [Minipress] 10 mg PO HS 12/15/18 [History] Tiotropium Homer [Spiriva Respimat] 5 mcg IN DAILY 12/15/18 [History] Acetylcysteine 10% 2 ml IH [id number] 7 Days #28 inhsol 12/19/18 [Rx] Gabapentin [Neurontin] 400 mg PO BID 30 Days #60 capsule 12/19/18 [Rx] Ipratropium/Albuterol Neb [Duoneb] 3 ml IH [id number] 7 Days #28 inhsol 12/19/18 [Rx] levoFLOXacin [Levaquin] 750 mg PO Q48H 6 Days #3 tablet 12/19/18 [Rx] predniSONE [PredniSONE] See Taper PO DAILY 9 Days #12 tablet 12/19/18 [Rx] Allergies/Adverse Reactions: Allergy/AdvReac Type Severity Reaction Status Date / Time bupropion [From Wellbutrin] AdvReac See Verified 02/16/18 02:01 Comments enalaprilat [From Vasotec] AdvReac Hives Verified 02/16/18 02:01 tramadol AdvReac Headache Verified 02/16/18 02:01 Certification: Further, I certify that my clinical findings support that this patient is homebound (i.e. absences from home require considerable and taxing effort and are for medical reasons or yazidi services or infrequently or short duration when for other reasons) because: Homebound Reason: Patient requires assistance of a person or device to safely leave home Attestation: My signature below is to certify that this patient is under my care and that I, or nurse practitioner, or a physician's administrative assistant working with me, has a [id number] encounter with this patient.
== END 2018-12-19 16:18 | disposition home health service (06) | DRG 140 ==
LOC: 3ANU 04:46 → EMEROOARM 04:46 → 3ANU 08:36 → SUATTDRO 09:14
PROVIDERS: ADMIT Family Medicine; ATTEND Internal Medicine

== ENCOUNTER 2019-03-05 06:32 | Inpatient (IN) ==
[2019-03-05] MEDS ORDERED: Ipratropium/Albuterol Neb 3 ML IH ONE (06:46)
--- NOTE | 2019-03-05 06:48 | Emergency Department Note ---
Disposition Clinical Impression: SAYDA (acute kidney injury), Polysubstance abuse Altered mental status Qualifiers: Altered mental status type: delirium Qualified Code(s): R41.0 - Disorientation, unspecified Anemia Qualifiers: Anemia type: unspecified type Qualified Code(s): D64.9 - Anemia, unspecified Disposition: Admitted As Inpatient Condition: Fair Altered Mental Status HPI - General Chief Complaint: ED Altered Mental Status Stated Complaint: AMS Time Seen by Provider: 03/05/19 06:40 Source: patient, EMS Mode of arrival: EMS Limitations: altered mental status Nursing Notes Reviewed: Yes Vital Signs Reviewed: Yes - History of Present Illness MD complaint: decreased responsiveness Onset (ago): unknown (Family reportedly called EMS when they were unable to get patient up / out of bed due to excessive sleepiness.) Timing confirmed by: family member Pain Severity: none Context: alcohol abuse, drug abuse, diabetes, cancer, liver disease, COPD (O2 Sats upon EMS arrival 67% on room air) Associated symptoms: Reports: cough, headaches, malaise, diarrhea. Denies: chest pain, diaphoresis, fever, nausea/vomiting, shortness of breath, syncope, weakness Treatments prior to arrival: oxygen - Related Data Home Medications Medication Instructions Recorded Confirmed Loratadine [Claritin] 10 mg PO DAILY 02/17/16 03/05/19 Mirtazapine [Remeron] 22.5 mg PO HS 05/03/17 03/05/19 Carvedilol 12.5 mg PO BIDWM #0 11/07/18 03/05/19 Levothyroxine Sodium [Levoxyl] 125 mcg PO QAM #0 11/07/18 03/05/19 Rivaroxaban [Xarelto] 20 mg PO QPM #0 11/07/18 03/05/19 ARIPiprazole [Abilify] 7.5 mg PO DAILY 12/14/18 03/05/19 Promethazine [Phenergan] 25 mg PO Q6HR PRN 12/14/18 03/05/19 Acetaminophen [Tylenol] 325 - 650 mg PO Q6HR PRN 12/15/18 03/05/19 Albuterol Sulfate [Albuterol 1 puff IN Q6H PRN 12/15/18 03/05/19 Inhaler] Prazosin HCl [Minipress] 10 mg PO HS 12/15/18 03/05/19 Cholecalciferol (Vitamin D3) 2,000 unit PO QAM 03/05/19 03/05/19 [Vitamin D3] Fluticasone/Salmeterol [Advair 1 each IH Q12H 03/05/19 03/05/19 100-50 Diskus] Gabapentin 800 mg PO TID 03/05/19 03/05/19 Omeprazole [PriLOSEC] 40 mg PO BID 03/05/19 03/05/19 diazePAM [Valium] 2 mg PO PRN PRN 03/05/19 03/05/19 Previous Rx's Medication Instructions Recorded amLODIPine [Norvasc] 5 mg PO DAILY #30 tablet 03/06/19 Allergies Allergy/AdvReac Type Severity Reaction Status Date / Time bupropion [From Wellbutrin] AdvReac See Verified 03/05/19 06:41 Comments enalaprilat [From Vasotec] AdvReac Hives Verified 03/05/19 06:41 tramadol AdvReac Headache Verified 03/05/19 06:41 Limitations: ROS unobtainable due to patients medical condition Past Medical History - Past Medical History Source: old records reviewed, obtained from family (per EMS), nursing notes reviewed Medical history: Reports: cancer, COPD, hyperlipidemia, hypertension Surgical history: Reports: other Psychiatric history: Reports: anxiety ENVIRONMENTAL CONSULTANT history: Reports: no ENVIRONMENTAL CONSULTANT history - Social History Smoking Status: Current some day smoker Smokeless Tobacco Status: No Alcohol use: Reports: occasionally Drug use: Reports: cocaine, opiates, marijuana, other Physical Exam - General Limitations: no limitations General appearance: obese, other (aggitated, somnolent) - Head Head exam: atraumatic, normocephalic, normal inspection - Eye Eye exam: Present: normal appearance, PERRL, EOMI, mydriasis. Absent: scleral icterus, conjunctival injection, nystagmus, miosis, periorbital swelling - ENT ENT exam: mucous membranes dry - Neck Neck exam: Present: full ROM, trachea midline. Absent: normal inspection, meningismus - Chest Chest inspection: Present: normal inspection - Respiratory Respiratory exam: Present: normal lung sounds bilaterally. Absent: respiratory distress, wheezes, stridor, accessory muscle use - Cardiovascular Cardiovascular exam: Present: regular rate, normal rhythm, normal heart sounds - Abdominal Exam Abdominal exam: Present: soft, Non-Tender, distention, normal bowel sounds. Absent: guarding, rebound, rigidity, mass - Extremities Exam Extremities exam: Present: normal inspection, normal capillary refill. Absent: pedal edema, joint swelling, calf tenderness - Expanded Lower Extremity Exam Gait: not tested/not observed - Back Exam Back exam: Present: normal inspection - Expanded Neurological Exam Patient oriented to: Present: person, place Speech: Present: fluid speech Cranial nerves: EOM function (II, III, IV, ): Normal, facial sensation (V): Normal, facial palsy (VII): Normal, gag reflex (IX): Normal, spinal accessory function (XI): Normal, tongue deviation (XII): Normal Upper motor neuron exam: denise neglect: Absent bilaterally, sensory extinction: Absent bilaterally Coma Scale Eye Opening: To Voice Coma Scale Motor Response: Obeys Commands Coma Scale Verbal Response: Confused Coma Scale Total: 13 - Psychiatric Psychiatric exam: Present: normal affect, agitated - Skin Skin exam: Present: warm, dry, intact, normal color Course Course Narrative: Patient with Hx of liver CA brought to ED by EMS after family called due to patient being somnolent. Patient rouses to verbal stimulus and when she has to cough. She says she feels short of breath, but no more than usual. She is A&O x 2. Confused about the date. She Provides little history and becomes agitated when many questions are asked. Vitals normal at this time. EKG, labs, CXR, CT ordered. Labs show slightly worse anemia, elevated INR, ammonia level 55 and ARF. Case discussed with Dr. Harper. He has had face to face time with the patient and agrees with the assessment and plan. EKG unchanged compared to previous. CXR shows bilateral small effusions. Patient has productive cough. Will cover for possible pneumonia. ABX ordered. PAtient admitted for further eval and treatment. Vital Signs O2 Sat by Pulse Oximetry 100 03/05/19 06:39 Temperature 97.5 F L 03/06/19 10:29 Pulse Rate 87 03/06/19 10:29 Respiratory Rate 20 03/06/19 10:29 Blood Pressure 165/100 03/06/19 10:29 O2 Sat by Pulse Oximetry 96 03/06/19 10:29 Oxygen Delivery Oxygen Delivery Nasal Cannula Altered Mental Status - Medical Records Medical records reviewed: Yes I reviewed the patient's medical records. - Lab Data Lab results reviewed: Yes I reviewed the patient's lab results. Result diagrams: 03/06/19 04:35 03/06/19 04:00 Lab Results 03/05/19 03/05/19 03/05/19 Range/Units 06:36 06:55 06:55 WBC (4.3-11.1) K/mcL RBC (3.82-4.97) M/mcL Hgb (11.5-15.4) g/dL Hct (35.3-44.9) % MCV (83.0-100.0) fL MCH (28.0-33.3) pg MCHC (31.6-35.5) g/dL RDW (11.5-14.5) % Plt Count (140-400) K/mcL MPV (9.4-12.4) fL Immature Gran % (0-4) % Seg Neutrophils % % Lymphocytes % % Monocytes % % Eosinophils % % Basophils % % Neutrophils # (1.6-8.9) K/mcL Lymphocytes # (0.6-4.6) K/mcL Monocytes # (0.0-1.3) K/mcL Eosinophils # (0.0-0.6) K/mcL Basophils # (0.0-0.2) K/mcL Nucleated RBCs/100 WBC (0) /100 WBC PT (9.4-12.1) Seconds INR APTT (26.0-36.0) Seconds Sodium (136-145) mEq/L Potassium (3.5-5.1) mEq/L Chloride (98-107) mEq/L Carbon Dioxide (23-29) mEq/L BUN (8-23) mg/dL Creatinine (0.60-1.20) mg/dL Est GFR ( Amer) (> 60) Est GFR (Non-Af Amer) (> 60) BUN/Creatinine Ratio (6-26) Glucose (70-105) mg/dL POC Glucose 122 H (70-99) mg/dL Calculated Osmolality (280-300) Lactic Acid (0.5-2.2) mmol/L Calcium (8.6-10.3) mg/dL Total Bilirubin (0.3-1.0) mg/dL Direct Bilirubin (0.0-0.2) mg/dL Indirect Bilirubin (0.0-1.2) mg/dL AST (13-39) Units/L ALT (7-52) Units/L Alkaline Phosphatase (34-104) Units/L Ammonia (16-53) mcmol/L Troponin I (< 0.04) ng/mL Serum Total Protein (6.4-8.9) g/dL Albumin (3.5-5.7) g/dL Globulin (2.4-3.5) g/dL Albumin/Globulin Ratio (1.1-2.2) Urine Color Yellow (Yellow) Urine Clarity Cloudy A (Clear) Urine pH 5.0 (5.0-8.0) pH Units Ur Specific Bayard 1.018 (1.010-1.025) Urine Protein 100 H (Neg-Trace) mg/dL Urine Glucose (UA) Normal (Normal) mg/dL Urine Ketones Negative (Negative) mg/dL Urine Blood Moderate H (Negative) Urine Nitrite Negative (Negative) Urine Bilirubin Negative (Negative) Urine Urobilinogen Normal (Normal) mg/dL Ur Leukocyte Esterase Negative (Negative) Urine Microscopic RBC 0-3 (0-3) per hpf Urine Microscopic WBC 0-3 (0-3) per hpf Ur Squamous Epith Cells Many H (None-Few) per lpf Urine Bacteria None Seen (None-Few) per hpf Ur Culture Indicated? NO (NO) Urine Opiates Screen Negative (Taajln=577) ng/mL Ur Barbiturates Screen Negative (Ernutd=302) ng/mL Ur Phencyclidine Scrn Negative (Cutoff=25) ng/mL Ur Amphetamines Screen Negative (Ljpygy=6164) ng/mL U Benzodiazepines Scrn Positive H (Dhfuft=657) ng/mL Urine Cocaine Screen Positive H (Cutoff= 300) ng/mL U Marijuana (THC) Screen Positive H (Cutoff = 50) ng/mL Ur Drug Screen Interp See Below Ethyl Alcohol (Less than 10) mg/dL Blood Type Antibody Screen Crossmatch 03/05/19 03/05/19 03/05/19 Range/Units 07:29 07:29 07:29 WBC 8.8 (4.3-11.1) K/mcL RBC 2.19 L (3.82-4.97) M/mcL Hgb 7.1 L (11.5-15.4) g/dL Hct 22.5 L (35.3-44.9) % MCV 102.7 H (83.0-100.0) fL MCH 32.4 (28.0-33.3) pg MCHC 31.6 (31.6-35.5) g/dL RDW 16.1 H (11.5-14.5) % Plt Count 212 (140-400) K/mcL MPV 9.9 (9.4-12.4) fL Immature Gran % 0.9 (0-4) % Seg Neutrophils % 71.8 % Lymphocytes % 11.5 % Monocytes % 14.9 % Eosinophils % 0.6 % Basophils % 0.3 % Neutrophils # 6.3 (1.6-8.9) K/mcL Lymphocytes # 1.0 (0.6-4.6) K/mcL Monocytes # 1.3 (0.0-1.3) K/mcL Eosinophils # 0.1 (0.0-0.6) K/mcL Basophils # 0.0 (0.0-0.2) K/mcL Nucleated RBCs/100 WBC 1.0 H (0) /100 WBC PT 31.3 H (9.4-12.1) Seconds INR 2.8 APTT 35.7 (26.0-36.0) Seconds Sodium 142 (136-145) mEq/L Potassium 4.5 (3.5-5.1) mEq/L Chloride 106 (98-107) mEq/L Carbon Dioxide 26 (23-29) mEq/L BUN 55 H (8-23) mg/dL Creatinine 2.48 H (0.60-1.20) mg/dL Est GFR ( Amer) 23 L (> 60) Est GFR (Non-Af Amer) 19 L (> 60) BUN/Creatinine Ratio 22 (6-26) Glucose 111 H (70-105) mg/dL POC Glucose (70-99) mg/dL Calculated Osmolality 310 H (280-300) Lactic Acid (0.5-2.2) mmol/L Calcium 9.3 (8.6-10.3) mg/dL Total Bilirubin 0.5 (0.3-1.0) mg/dL Direct Bilirubin 0.1 (0.0-0.2) mg/dL Indirect Bilirubin 0.4 (0.0-1.2) mg/dL AST 100 H (13-39) Units/L ALT 61 H (7-52) Units/L Alkaline Phosphatase 78 (34-104) Units/L Ammonia (16-53) mcmol/L Troponin I 0.08 H* (< 0.04) ng/mL Serum Total Protein 6.6 (6.4-8.9) g/dL Albumin 3.8 (3.5-5.7) g/dL Globulin 2.8 (2.4-3.5) g/dL Albumin/Globulin Ratio 1.4 (1.1-2.2) Urine Color (Yellow) Urine Clarity (Clear) Urine pH (5.0-8.0) pH Units Ur Specific Bayard (1.010-1.025) Urine Protein (Neg-Trace) mg/dL Urine Glucose (UA) (Normal) mg/dL Urine Ketones (Negative) mg/dL Urine Blood (Negative) Urine Nitrite (Negative) Urine Bilirubin (Negative) Urine Urobilinogen (Normal) mg/dL Ur Leukocyte Esterase (Negative) Urine Microscopic RBC (0-3) per hpf Urine Microscopic WBC (0-3) per hpf Ur Squamous Epith Cells (None-Few) per lpf Urine Bacteria (None-Few) per hpf Ur Culture Indicated? (NO) Urine Opiates Screen (Ndihpo=782) ng/mL Ur Barbiturates Screen (Wrxvqz=759) ng/mL Ur Phencyclidine Scrn (Cutoff=25) ng/mL Ur Amphetamines Screen (Qkczde=6813) ng/mL U Benzodiazepines Scrn (Knrpzi=160) ng/mL Urine Cocaine Screen (Cutoff= 300) ng/mL U Marijuana (THC) Screen (Cutoff = 50) ng/mL Ur Drug Screen Interp Ethyl Alcohol (Less than 10) mg/dL Blood Type Antibody Screen Crossmatch 03/05/19 03/05/19 03/05/19 Range/Units 07:29 08:54 08:54 WBC (4.3-11.1) K/mcL RBC (3.82-4.97) M/mcL Hgb (11.5-15.4) g/dL Hct (35.3-44.9) % MCV (83.0-100.0) fL MCH (28.0-33.3) pg MCHC (31.6-35.5) g/dL RDW (11.5-14.5) % Plt Count (140-400) K/mcL MPV (9.4-12.4) fL Immature Gran % (0-4) % Seg Neutrophils % % Lymphocytes % % Monocytes % % Eosinophils % % Basophils % % Neutrophils # (1.6-8.9) K/mcL Lymphocytes # (0.6-4.6) K/mcL Monocytes # (0.0-1.3) K/mcL Eosinophils # (0.0-0.6) K/mcL Basophils # (0.0-0.2) K/mcL Nucleated RBCs/100 WBC (0) /100 WBC PT (9.4-12.1) Seconds INR APTT (26.0-36.0) Seconds Sodium (136-145) mEq/L Potassium (3.5-5.1) mEq/L Chloride (98-107) mEq/L Carbon Dioxide (23-29) mEq/L BUN (8-23) mg/dL Creatinine (0.60-1.20) mg/dL Est GFR ( Amer) (> 60) Est GFR (Non-Af Amer) (> 60) BUN/Creatinine Ratio (6-26) Glucose (70-105) mg/dL POC Glucose (70-99) mg/dL Calculated Osmolality (280-300) Lactic Acid 1.2 (0.5-2.2) mmol/L Calcium (8.6-10.3) mg/dL Total Bilirubin (0.3-1.0) mg/dL Direct Bilirubin (0.0-0.2) mg/dL Indirect Bilirubin (0.0-1.2) mg/dL AST (13-39) Units/L ALT (7-52) Units/L Alkaline Phosphatase (34-104) Units/L Ammonia 55 H (16-53) mcmol/L Troponin I (< 0.04) ng/mL Serum Total Protein (6.4-8.9) g/dL Albumin (3.5-5.7) g/dL Globulin (2.4-3.5) g/dL Albumin/Globulin Ratio (1.1-2.2) Urine Color (Yellow) Urine Clarity (Clear) Urine pH (5.0-8.0) pH Units Ur Specific Bayard (1.010-1.025) Urine Protein (Neg-Trace) mg/dL Urine Glucose (UA) (Normal) mg/dL Urine Ketones (Negative) mg/dL Urine Blood (Negative) Urine Nitrite (Negative) Urine Bilirubin (Negative) Urine Urobilinogen (Normal) mg/dL Ur Leukocyte Esterase (Negative) Urine Microscopic RBC (0-3) per hpf Urine Microscopic WBC (0-3) per hpf Ur Squamous Epith Cells (None-Few) per lpf Urine Bacteria (None-Few) per hpf Ur Culture Indicated? (NO) Urine Opiates Screen (Xpfase=114) ng/mL Ur Barbiturates Screen (Wtvszb=797) ng/mL Ur Phencyclidine Scrn (Cutoff=25) ng/mL Ur Amphetamines Screen (Nnqndl=2714) ng/mL U Benzodiazepines Scrn (Augcpy=536) ng/mL Urine Cocaine Screen (Cutoff= 300) ng/mL U Marijuana (THC) Screen (Cutoff = 50) ng/mL Ur Drug Screen Interp Ethyl Alcohol < 10 (Less than 10) mg/dL Blood Type Antibody Screen Crossmatch 03/05/19 03/05/19 03/05/19 Range/Units 12:00 12:48 13:00 WBC 7.9 (4.3-11.1) K/mcL RBC 2.14 L (3.82-4.97) M/mcL Hgb 6.9 L (11.5-15.4) g/dL Hct 21.9 L (35.3-44.9) % MCV 102.3 H (83.0-100.0) fL MCH 32.2 (28.0-33.3) pg MCHC 31.5 L (31.6-35.5) g/dL RDW 16.0 H (11.5-14.5) % Plt Count 193 (140-400) K/mcL MPV 9.7 (9.4-12.4) fL Immature Gran % 0.9 (0-4) % Seg Neutrophils % 89.3 % Lymphocytes % 3.6 % Monocytes % 5.8 % Eosinophils % 0.3 % Basophils % 0.1 % Neutrophils # 7.0 (1.6-8.9) K/mcL Lymphocytes # 0.3 L (0.6-4.6) K/mcL Monocytes # 0.5 (0.0-1.3) K/mcL Eosinophils # 0.0 (0.0-0.6) K/mcL Basophils # 0.0 (0.0-0.2) K/mcL Nucleated RBCs/100 WBC 0.8 H (0) /100 WBC PT (9.4-12.1) Seconds INR APTT (26.0-36.0) Seconds Sodium (136-145) mEq/L Potassium (3.5-5.1) mEq/L Chloride (98-107) mEq/L Carbon Dioxide (23-29) mEq/L BUN (8-23) mg/dL Creatinine (0.60-1.20) mg/dL Est GFR ( Amer) (> 60) Est GFR (Non-Af Amer) (> 60) BUN/Creatinine Ratio (6-26) Glucose (70-105) mg/dL POC Glucose 232 H (70-99) mg/dL Calculated Osmolality (280-300) Lactic Acid (0.5-2.2) mmol/L Calcium (8.6-10.3) mg/dL Total Bilirubin (0.3-1.0) mg/dL Direct Bilirubin (0.0-0.2) mg/dL Indirect Bilirubin (0.0-1.2) mg/dL AST (13-39) Units/L ALT (7-52) Units/L Alkaline Phosphatase (34-104) Units/L Ammonia (16-53) mcmol/L Troponin I 0.08 H* (< 0.04) ng/mL Serum Total Protein (6.4-8.9) g/dL Albumin (3.5-5.7) g/dL Globulin (2.4-3.5) g/dL Albumin/Globulin Ratio (1.1-2.2) Urine Color (Yellow) Urine Clarity (Clear) Urine pH (5.0-8.0) pH Units Ur Specific Bayard (1.010-1.025) Urine Protein (Neg-Trace) mg/dL Urine Glucose (UA) (Normal) mg/dL Urine Ketones (Negative) mg/dL Urine Blood (Negative) Urine Nitrite (Negative) Urine Bilirubin (Negative) Urine Urobilinogen (Normal) mg/dL Ur Leukocyte Esterase (Negative) Urine Microscopic RBC (0-3) per hpf Urine Microscopic WBC (0-3) per hpf Ur Squamous Epith Cells (None-Few) per lpf Urine Bacteria (None-Few) per hpf Ur Culture Indicated? (NO) Urine Opiates Screen (Jdzhjp=004) ng/mL Ur Barbiturates Screen (Jzhwqw=777) ng/mL Ur Phencyclidine Scrn (Cutoff=25) ng/mL Ur Amphetamines Screen (Juribd=4042) ng/mL U Benzodiazepines Scrn (Atyzug=198) ng/mL Urine Cocaine Screen (Cutoff= 300) ng/mL U Marijuana (THC) Screen (Cutoff = 50) ng/mL Ur Drug Screen Interp Ethyl Alcohol (Less than 10) mg/dL Blood Type Antibody Screen Crossmatch 03/05/19 Range/Units 13:15 WBC (4.3-11.1) K/mcL RBC (3.82-4.97) M/mcL Hgb (11.5-15.4) g/dL Hct (35.3-44.9) % MCV (83.0-100.0) fL MCH (28.0-33.3) pg MCHC (31.6-35.5) g/dL RDW (11.5-14.5) % Plt Count (140-400) K/mcL MPV (9.4-12.4) fL Immature Gran % (0-4) % Seg Neutrophils % % Lymphocytes % % Monocytes % % Eosinophils % % Basophils % % Neutrophils # (1.6-8.9) K/mcL Lymphocytes # (0.6-4.6) K/mcL Monocytes # (0.0-1.3) K/mcL Eosinophils # (0.0-0.6) K/mcL Basophils # (0.0-0.2) K/mcL Nucleated RBCs/100 WBC (0) /100 WBC PT (9.4-12.1) Seconds INR APTT (26.0-36.0) Seconds Sodium (136-145) mEq/L Potassium (3.5-5.1) mEq/L Chloride (98-107) mEq/L Carbon Dioxide (23-29) mEq/L BUN (8-23) mg/dL Creatinine (0.60-1.20) mg/dL Est GFR ( Amer) (> 60) Est GFR (Non-Af Amer) (> 60) BUN/Creatinine Ratio (6-26) Glucose (70-105) mg/dL POC Glucose (70-99) mg/dL Calculated Osmolality (280-300) Lactic Acid (0.5-2.2) mmol/L Calcium (8.6-10.3) mg/dL Total Bilirubin (0.3-1.0) mg/dL Direct Bilirubin (0.0-0.2) mg/dL Indirect Bilirubin (0.0-1.2) mg/dL AST (13-39) Units/L ALT (7-52) Units/L Alkaline Phosphatase (34-104) Units/L Ammonia (16-53) mcmol/L Troponin I (< 0.04) ng/mL Serum Total Protein (6.4-8.9) g/dL Albumin (3.5-5.7) g/dL Globulin (2.4-3.5) g/dL Albumin/Globulin Ratio (1.1-2.2) Urine Color (Yellow) Urine Clarity (Clear) Urine pH (5.0-8.0) pH Units Ur Specific Bayard (1.010-1.025) Urine Protein (Neg-Trace) mg/dL Urine Glucose (UA) (Normal) mg/dL Urine Ketones (Negative) mg/dL Urine Blood (Negative) Urine Nitrite (Negative) Urine Bilirubin (Negative) Urine Urobilinogen (Normal) mg/dL Ur Leukocyte Esterase (Negative) Urine Microscopic RBC (0-3) per hpf Urine Microscopic WBC (0-3) per hpf Ur Squamous Epith Cells (None-Few) per lpf Urine Bacteria (None-Few) per hpf Ur Culture Indicated? (NO) Urine Opiates Screen (Myevxx=010) ng/mL Ur Barbiturates Screen (Qtokwj=336) ng/mL Ur Phencyclidine Scrn (Cutoff=25) ng/mL Ur Amphetamines Screen (Npoexh=1446) ng/mL U Benzodiazepines Scrn (Kvqeob=937) ng/mL Urine Cocaine Screen (Cutoff= 300) ng/mL U Marijuana (THC) Screen (Cutoff = 50) ng/mL Ur Drug Screen Interp Ethyl Alcohol (Less than 10) mg/dL Blood Type A POSITIVE Antibody Screen NEGATIVE Crossmatch See Detail - Radiology Data Radiology results reviewed: Yes I reviewed the patient's radiology results. Chest X-Ray 03/05/19 06:41 IMPRESSION: Slightly increased interstitial opacities, which may reflect edema. Questionable small left pleural effusion. D/ / Terri Gresham MD / Terri Gresham MD Interpreting Provider: Terri Gresham MD Head CT 03/05/19 08:08 IMPRESSION: No acute intracranial abnormality. D/ / Jerod Merrill MD / Jerod Merrill MD Interpreting Provider: Jerod Merrill MD Checklist - LKW: 3-4.5 hrs Add. Warnings/Precautions Patient/family understanding: The patient/family members have been counseled and understood the risk, benefit, and alternatives of treatment.
[2019-03-05 07:15] LABS: Bilirubin,Urine Negative (Negative); Blood,Urine Moderate (Negative); Clarity,Urine Cloudy (Clear); Color,Urine Yellow (Yellow); Glucose,Urine (UA) Normal (Normal); Ketones,Urine Negative (Negative); Leukocyte Esterase,Urine Negative (Negative); Nitrite,Urine Negative (Negative); Protein,Urine 100 mg/dL (Neg-Trace); Specific Gravity,Urine 1.018 (1.010-1.025); Urobilinogen,Urine Normal (Normal)
[2019-03-05 07:18] LABS: Bacteria,Urine None Seen per hpf (None-Few); RBC,Urine 0-3 per hpf (0-3); Squamous Epithelial Cell,Urine Many per lpf (None-Few); WBC,Urine 0-3 per hpf (0-3)
[2019-03-05 07:39] LABS: Amphetamine Screen,Urine Negative ng/mL (Cutoff=1000); Barbiturate Screen,Urine Negative ng/mL (Cutoff=200); Benzodiazepines Screen,Urine Positive ng/mL (Cutoff=200); Cannabinoid Screen,Urine Positive ng/mL (Cutoff = 50); Cocaine Screen,Urine Positive ng/mL (Cutoff= 300); Opiate Screen,Urine Negative ng/mL (Cutoff=300); Phencyclidine Screen,Urine Negative ng/mL (Cutoff=25)
[2019-03-05 07:44] LABS: Basophils % 0.3 %; Eosinophils # 0.1 K/mcL (0.0-0.6); Eosinophils % 0.6 %; Hematocrit 22.5 % (35.3-44.9); Hemoglobin 7.1 g/dL (11.5-15.4); Immature Granulocytes % 0.9 % (0-4); Lymphocytes % 11.5 %; Mean Corpuscular HGB Conc 31.6 g/dL (31.6-35.5); Mean Corpuscular Hemoglobin 32.4 pg (28.0-33.3); Mean Corpuscular Volume 102.7 fL (83.0-100.0); Mean Platelet Volume 9.9 fL (9.4-12.4); Monocytes # 1.3 K/mcL (0.0-1.3); Monocytes % 14.9 %; Neutrophils # 6.3 K/mcL (1.6-8.9); Platelet Count 212 K/mcL (140-400); Red Blood Count 2.19 M/mcL (3.82-4.97); Red Cell Distribution Width 16.1 % (11.5-14.5); Segmented Neutrophils % 71.8 %
[2019-03-05 07:55] LABS: INR 2.8; Prothrombin Time 31.3 Seconds (9.4-12.1)
[2019-03-05 07:58] LABS: Activated Partial Thrombo Time 35.7 Seconds (26.0-36.0)
[2019-03-05 08:09] LABS: Albumin 3.8 g/dL (3.5-5.7); Albumin/Globulin Ratio 1.4 (1.1-2.2); Bilirubin,Direct 0.1 mg/dL (0.0-0.2); Bilirubin,Indirect 0.4 mg/dL (0.0-1.2); Bilirubin,Total 0.5 mg/dL (0.3-1.0); Calcium 9.3 mg/dL (8.6-10.3); Globulin 2.8 g/dL (2.4-3.5); Potassium 4.5 mEq/L (3.5-5.1); Total Protein 6.6 g/dL (6.4-8.9); Troponin I 0.08 ng/mL (< 0.04)
[2019-03-05] MEDS ORDERED: Azithromycin 500 MG in D5% in Water 250 ML IVPB ONE (09:03)
[2019-03-05] MEDS ORDERED: cefTRIAXone 1,000 MG in 0.9 % Sodium Chloride Mini Bag 100 ML IVPB ONE (09:03)
[2019-03-05] MEDS ORDERED: methylPREDNISolone 125 MG/2 ML VIAL IVP ONE (09:05)
[2019-03-05] MEDS ORDERED: Naloxone 0.4 MG/ML INJ IVP PRN (11:50)
[2019-03-05 13:22] LABS: Basophils % 0.1 %; Eosinophils % 0.3 %; Hematocrit 21.9 % (35.3-44.9); Hemoglobin 6.9 g/dL (11.5-15.4); Immature Granulocytes % 0.9 % (0-4); Lymphocytes # 0.3 K/mcL (0.6-4.6); Lymphocytes % 3.6 %; Mean Corpuscular HGB Conc 31.5 g/dL (31.6-35.5); Mean Corpuscular Hemoglobin 32.2 pg (28.0-33.3); Mean Corpuscular Volume 102.3 fL (83.0-100.0); Mean Platelet Volume 9.7 fL (9.4-12.4); Monocytes # 0.5 K/mcL (0.0-1.3); Monocytes % 5.8 %; Nucleated Red Blood Cells 0.8 /100 WBC (0); Platelet Count 193 K/mcL (140-400); Red Blood Count 2.14 M/mcL (3.82-4.97); Segmented Neutrophils % 89.3 %
--- NOTE | 2019-03-05 13:27 | Internal Med History&Physical ---
Date of Encounter: 03/05/19 Time of Encounter: 12:00 Internal Medicine - H&P: HPI Chief complaint: Altered mental status and shortness of breath Admitted From: Emergency Dept Plans for Post Hospital Care: Transfer [facility] History of present illness: Ms. Henderson is a 68 year old female with a past medical history of liver malignancy who is on chemotherapy and treatment at the [facility], recently discharged to home after being admitted for metabolic encephalopathy and shortness of breath. She now presents from home to the ER after being brought in for altered mental status and difficulty breathing. 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 Most of the history is obtained from the patient's sister over the phone (Shauna Putnam). Unfortunately Shauna also is not aware of a lot of her medical problems and has only provided with limited information. What we do know now is that patient has a history of COPD and is on 4 L of home oxygen, history of liver malignancy (it is not clear to me what the underlying reason for liver malignancy has alcohol or hepatitis )for which he receives chemotherapy at the [facility] and [facility] her last chemotherapy being more than a month ago. On prior chart review it seems like the patient has had history of chronic anemia most likely as a result of her chemotherapy, COPD exacerbations, multiple substance abuse issues including cocaine and smoking, there is a history mentioned of DVT and pulmonary embolism in the past for which the patient is currently taking Rivaroxaban . Does state that she knows that Katrina takes some blood thinners but does not know the exact dosage or the reason why. We also know that the patient has a history of stage III chronic kidney disease, history of congestive heart failure unclear what type and a history of "fluid around the heart" per her sister Patient cannot give me any answers at this point and review of systems is essentially unobtainable from her. I was told in the handout that the patient was found to be hypoxic at home with saturations in the 70s and quickly responded to 100% nonrebreather when she was brought to the ER. Since then she has been weaned down to 3 L and is maintaining her oxygenation in the 94-95% range. She does take home oxygen at 4 L at baseline and we already know about that. On review of the ER records I do not see enough provider documentation at this time but so far her results here indicate a hemoglobin of 7.1 which on repeat is down to 6.9, creatinine being elevated to 2.48 from a baseline of 1.28 AST, ALTof 161 respectively, serum ammonia 55, troponin of 0.082. Patient also has an INR of 2.8 which is suggestive of an underlying liver disease . The patient's toxicology screen is positive for urinary benzodiazepines, cocaine, THC and negative for alcohol. The patient interestingly did briefly admit to smoking cocaine and we had at-home nonstop for the last 3-4 days. I do not see any evidence of hypoglycemia. The patient has a slight increase in interstitial opacities on the chest x-ray with a questionable small left pleural effusion on her blood pressure has been stable lactic acid were 1.2. A head CT did not show any acute intraparenchymal lung normality The patient has not been placed on internal medicine service for further management Past Med Surg Social Fam HX - Past Medical History Medical history: cancer, COPD, hyperlipidemia, hypertension Additional medical history: liver cancer w/mets lungs/kidneys Psychiatric history: anxiety - Past Surgical History Surgical History: other Additional surgical history: Liver and leg surgery. - Social History Smoking Status: Current some day smoker Smokeless Tobacco Status: No Alcohol use: occasionally Drug use: marijuana - Additional Family History Additional family history: Family history is unobtainable due to patient mentation Internal Medicine - H&P: Meds Amlodipine Besylate 10 mg PO DAILY 02/17/16 [History] Loratadine [Claritin] 10 mg PO DAILY 02/17/16 [History] Atorvastatin Calcium [Lipitor] 80 mg PO DAILY 05/03/17 [History] Mirtazapine [Remeron] 22.5 mg PO HS 05/03/17 [History] Pantoprazole Sodium 40 mg PO BID 05/03/17 [History] Carvedilol 12.5 mg PO BID 11/07/18 [History] Gemcitabine HCl 11/07/18 [History] Levothyroxine 125 mcg PO DAILY 11/07/18 [History] Potassium Chloride [Klor-Con 10] 20 mg PO BID 11/07/18 [History] Rivaroxaban 20 mg PO DAILY 11/07/18 [History] Trintellix 20 mg PO DAILY 11/07/18 [History] ARIPiprazole [Abilify] 7.5 mg PO DAILY 12/14/18 [History] Nicotine [Nicotine Patch] 21 mcg TP DAILY 12/14/18 [History] Promethazine [Phenergan] 25 mg PO Q6HR 12/14/18 [History] diazePAM [Valium] 2 mg PO DAILY PRN 12/14/18 [History] Acetaminophen [Tylenol] 650 mg PO Q6HR PRN 12/15/18 [History] Albuterol Sulfate [Albuterol Inhaler] 1 puff IN Q6H PRN 12/15/18 [History] Prazosin HCl [Minipress] 10 mg PO HS 12/15/18 [History] Tiotropium [place] [Spiriva Respimat] 5 mcg IN DAILY 12/15/18 [History] Allergy/AdvReac Type Severity Reaction Status Date / Time bupropion [From Wellbutrin] AdvReac See Verified 03/05/19 06:41 Comments enalaprilat [From Vasotec] AdvReac Hives Verified 03/05/19 06:41 tramadol AdvReac Headache Verified 03/05/19 06:41 ROS unobtainable: due to mental status All Systems PM: A 10-system review of systems was performed and is negative for pertinent findings except as documented above in the HPI. - Constitutional Vitals: Temp Pulse Resp BP Pulse Ox 97.3 F L 82 26 151/96 85 03/05/19 11:37 03/05/19 11:37 03/05/19 10:36 03/05/19 11:37 03/05/19 11:37 Exam: GENERAL: Somnolent, briefly arousable but goes right back to sleep, unable to answer consistently EYES: PERRLA, EOMI EARS: External ears normal, canals clear OROPHARYNX: Lips, mucosa, and tongue normal. Poor dentition NECK: No jugulovenous distention, No carotid bruits, Carotid pulse normal contour, Supple LUNGS: Lungs exhibit faint wheezing in both lung koehler diffusely, port is present on the right chest wall with IV infusing through it CARDIAC: Normal S1 and S2; no rubs, murmurs, or gallops ABDOMEN: Abdomen soft, non-tender, BS normal, No masses or organomegaly EXTREMITIES: At least 1+ pitting edema bilaterally NEURO: Unable to examine completely due to patient mentation PULSES: 2+ radial, 2+ carotid Rest of the exam is non contributory Internal Med - H&P Results - Labs CBC & Chem 7: 03/05/19 13:00 03/05/19 07:29 Labs: Short CBC 03/05/19 Range/Units 07:29 WBC 8.8 (4.3-11.1) K/mcL Hgb 7.1 L (11.5-15.4) g/dL Hct 22.5 L (35.3-44.9) % Plt Count 212 (140-400) K/mcL Neutrophils # 6.3 (1.6-8.9) K/mcL BMP 03/05/19 07:29 Sodium 142 Potassium 4.5 Chloride 106 Carbon Dioxide 26 BUN 55 H Creatinine 2.48 H Glucose 111 H Calcium 9.3 Cardiac Enzymes 03/05/19 03/05/19 Range/Units 07:29 12:00 Troponin I 0.08 H* 0.08 H* (< 0.04) ng/mL Liver Function 03/05/19 Range/Units 07:29 Total Bilirubin 0.5 (0.3-1.0) mg/dL Direct Bilirubin 0.1 (0.0-0.2) mg/dL AST 100 H (13-39) Units/L ALT 61 H (7-52) Units/L Alkaline Phosphatase 78 (34-104) Units/L Albumin 3.8 (3.5-5.7) g/dL Urine 03/05/19 Range/Units 06:55 Urine Color Yellow (Yellow) Urine Clarity Cloudy A (Clear) Urine pH 5.0 (5.0-8.0) pH Units Ur Specific [place] 1.018 (1.010-1.025) Urine Protein 100 H (Neg-Trace) mg/dL Urine Glucose (UA) Normal (Normal) mg/dL - Impressions ITS Impressions Chest X-Ray 03/05/19 06:41 IMPRESSION: Slightly increased interstitial opacities, which may reflect edema. Questionable small left pleural effusion. D/ / Terri Gresham MD / Terri Gresham MD Interpreting Provider: Terri Gresham MD Head CT 03/05/19 08:08 IMPRESSION: No acute intracranial abnormality. D/ / Jerod Merrill MD / Jerod Merrill MD Interpreting Provider: Jerod Merrill MD - Assessment and Plan (1) SAYDA (acute kidney injury) Current Visit: Yes Status: Acute Assessment and plan: Acute renal failure superimposed on his chronic kidney disease stage III Patient has been given gentle hydration in the ER I will continue gradual hydration at 75 mL an hour for 1 back keeping in mind her history of questionable CHF I will check a 2-D echo to better delineate her CHF baseline she clinically does not appear to be in overt heart failure I will also instruct the nurses to give her Lasix right after her transfusion Repeat creatinine in the morning (2) Hypoxia Current Visit: Yes Status: Acute Assessment and plan: Patient presented with chief complaint of acute hypoxia in the setting of polysubstance abuse with a history of COPD using 4 L of oxygen Here the patient quickly recovered after being briefly placed on nonrebreather and has has been weaned down to 4 L and maintaining saturations greater than 92%. I am not really clear as to the cause of his hypoxia besides polysubstance abuse at this point- I do believe that this was really transient and is now almost resolved. He did receive breathing treatments in the ER and I am going to continue them on the floor Patient was started on Rocephin and azithromycin in the ER and has been given 1 dose. At this point I am going to watch her respiratory status and not going to continue the antibiotics because she does not have a white count and she has other reasons why she had this metabolic encephalopathy in the first place. Her chest x-ray is not suggestive of an overt pneumonia and she does not have abscess evidence of sepsis, normal lactic acid and normotension point in that direction this could change based on blood culture reports Of note I have instructed the nurses to place a peripheral IV for transfusing these medications (3) Altered mental status Current Visit: Yes Status: Acute Assessment and plan: Metabolic encephalopathy of multifactorial origin-most likely being acute renal failure, substance abuse, decompensated liver failure Patient tested positive for cocaine, THC, benzodiazepines in the ER-social work has been consulted for assistance in this situation because the patient has a long history of the substance abuses She does have acute on chronic renal failure which could potentially worsen metabolic encephalopathy She does have elevated INR and abnormal LFTs . Even though she does have a liver malignancy history and is taking chemotherapy on an outpatient basis I am not quite sure if she also has underlying cirrhosis history. If that is the case then she could potentially be having a bleeding somewhere given that she is also anemic today and I am going to be ruling out a GI bleed . her ammonia level is 55 but it does not always correlate with the level of encephalopathy- and starting her on lactulose is reasonable Continue to monitor closely for neurological status. So far her imaging of the brain has not revealed any significant problems. Qualifiers: Altered mental status type: delirium Qualified Code(s): R41.0 - Disorientation, unspecified (4) Polysubstance abuse Current Visit: Yes Status: Acute Assessment and plan: This is a chronic problem and social work has been consulted to address this. (5) Anemia Current Visit: Yes Status: Chronic Assessment and plan: Patient has a history of chronic anemia but this is her lowest hemoglobin sure she has presented to [facility] going back to 2016. Given the fact that she is also taking blood thinners as an outpatient for DVT/PE which has not clearly been verified based on her or her sister's history, I am going to hold off on further anticoagulation until we get this sorted out I am still waiting for medication and consideration to be performed but given the fact that her anemia is out of proportion, I will send a stool for occult blood and place the EPCD for DVT prophylaxis Given her coronary artery disease history(her sister did mention that she does have that and takes cholesterol pills), I will give her a blood transfusion and keep her target hemoglobin greater than 8. Her troponins are mildly elevated but that could potentially be from demand ischemia I will also check an echo to better delineate her cardiac function. consider Oncology and cardiology consult down the line. Qualifiers: Anemia type: unspecified type Qualified Code(s): D64.9 - Anemia, unspecified (6) DVT prophylaxis Current Visit: Yes Status: Acute Assessment and plan: At this point since we are holding rivaroxaban, place EPCD - Time Spent With Patient Total time spent is greater than 50% in coordination of care (as documented) at patient's floor/unit and/or counseling patient:90 min
[2019-03-05] MEDS ORDERED: 0.9 % Sodium Chloride 1,000 ML IVC SCH (14:00)
[2019-03-05] MEDS ORDERED: 0.9 % Sodium Chloride 500 ML ONE (14:20)
--- NOTE | 2019-03-05 14:50 | Oncology Inp Consult Note ---
<Kelli Olivier L - Last Filed: 03/05/19 16:16> Date of Encounter: 03/05/19 Time of Encounter: 15:30 Assessment and Plan (1) Anemia Status: Chronic Assessment and plan: Admitted with hgb 6.9, below patients baseline ~10 Macrocytosis in the setting of liver disease Secondary to treatment vs. blood loss vs. 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 Currently follows with Dr. Pallavi Puentes at [facility] Currently therapy includes GEM/CIS- last dose C6D15 02/11/2019 See HPI for full treatment summary Plan: Further treatment recommendations on outpatient basis per [facility] Qualifiers: Liver malignancy type: unspecified liver malignancy Qualified Code(s): C22.9 - Malignant neoplasm of liver, not specified as primary or secondary - Data of Consult Requesting Physician: Eileen Chowdary MD Primary Care Provider: PCP NONE - Consult Narrative Reason for consult: hepatocellular carcinoma/cholangiocarcinoma History of present illness: Ms. Katrina Henderson is a 68 y.o. female with past medical history significant for hepatitis C, cirrhosis, IVDA, COPD, hypertension, hyperlipidemia, and depression who was diagnosed with mixed hepatocellular ca rcinoma/cholangiocarcinoma in January of 2011. Currently follows with Dr. Pallavi Puentes currently receiving GEM/CIS last dose C6D15 02/11/2019 [facility] history -spring. CT scan of the abdomen at that time revealed a 4 cm mass within the left lobe of the liver which was confirmed by a MRI of the liver. AFP was elevated at 1294. She subsequently underwent liver biopsy which revealed pathology consistent with poorly differentiated carcinoma. -On 03/16/11, she underwent laparoscopic resection of segment III of the liver. Intraoperative findings revealed cirrhosis, however there was no evidence of metastatic disease. Pathology revealed a 4.0 x 3.5 x 2.6 cm mass that was consistent with moderately differentiated hepatocellular carcinoma. There was also an extensive glandular component and strong CK7 staining which suggested a component of cholangiocarcinoma. The tumor was staged as pT2Nx. Surgical margins were negative. Findings also suggested chronic hepatitis. Surveillance was recommended. - Her MRI of the liver on 04/27/14 revealed a 0.8 x 0.9 cm arterial enhancing lesion in segment 8 of the liver, which was stable from the prior MRI. There was also evidence of interval increase in size of a lymph node within the epicardial fat pad which was indeterminate. Her AFP was 8.6 on 04/27/14 concerning for tumor recurrence. -Not a candidate for cardiophrenic node biopsy. -Started sorafenib on 03/05/16. Underwent ablation to the liver lesions on 07/05/2016. -10/30/16, sorafenib was increased to 400 mg BID due to progressive lymphadenopathy. Following increase in this medication, she experienced increased side effects. Sorafenib was then placed on hold on 11/28/16 due to gra de 2 hand foot syndrome. -Resumed therapy on 12/19/16 at a dose reduction of 400 mg in the AM and 200 mg in the PM and had tolerated this dose much better. -12/28/16 imaging unfortunately revealed continued enlargement of the mass in the anterior pericardial tissue. AFP was rising as well. Therapy was changed to regorafenib on 01/24/17. She started cycle 2 on 02/22/17 and therapy was placed on hold on 03/05/17 due to significant pain in her feet. She then was switched to 2 week on/1 week off dosing for better tolerability. -Restaging scans in 06/2017 noted interval increase in size of pericardiophrenic mass. She was started on Nivolumab 07/11/17. Imaging performed on 02/18/18 revealed disease progression with enlargement of the pericardiac/juxtaphrenic mass and new and/or more noticeable peritoneal nodules. -She started on capecitabine on 03/16/18 due to her mixed hepatocellular carcinoma and cholangiocarcinoma histology and has tolerated treatment well. -Scans from 08/07/18 unfortunately reveals disease progression with increasing size of the mediastinal mass and peritoneal nodules. Given her mixed hepatocellular carcinoma and cholangiocarcinoma histology, it was suggested to begin treatment with gemcitabine and cisplatin. She began this on 08/19/18. Most recently, she presented from home to ER for altered mental status and shortness of breath. She was noted to be hypoxic with saturations in the 70s include responding to 100% nonrebreather in the emergency room. This is since been weaned down to about 3 L nasal cannula. He was noted to be anemic with hemoglobin of 6.9 and have acute on chronic kidney injury with creatinine elevated at 2.48. The patient's toxicology screen is positive for urinary benzodiazepines, cocaine, THC and negative for alcohol. The patient interestingly did briefly admit to smoking cocaine and we had at-home nonstop for the last 3-4 days. Past Med Surg Social Fam HX - Past Medical History Medical history: cancer, COPD, hyperlipidemia, hypertension Additional medical history: liver cancer w/mets lungs/kidneys Psychiatric history: anxiety - Past Surgical History Surgical History: other Additional surgical history: Liver and leg surgery. - Social History Smoking Status: Current some day smoker Smokeless Tobacco Status: No Alcohol use: occasionally Drug use: marijuana Medications and Allergies Loratadine [Claritin] 10 mg PO DAILY 02/17/16 [History] Mirtazapine [Remeron] 22.5 mg PO HS 05/03/17 [History] Carvedilol 12.5 mg PO BIDWM #0 11/07/18 [History] Levothyroxine Sodium [Levoxyl] 125 mcg PO QAM #0 11/07/18 [History] Rivaroxaban [Xarelto] 20 mg PO QPM #0 11/07/18 [History] ARIPiprazole [Abilify] 7.5 mg PO DAILY 12/14/18 [History] Promethazine [Phenergan] 25 mg PO Q6HR PRN 12/14/18 [History] Acetaminophen [Tylenol] 325 - 650 mg PO Q6HR PRN 12/15/18 [History] Albuterol Sulfate [Albuterol Inhaler] 1 puff IN Q6H PRN 12/15/18 [History] Prazosin HCl [Minipress] 10 mg PO HS 12/15/18 [History] Cholecalciferol (Vitamin D3) [Vitamin D] 2,000 unit PO QAM 03/05/19 [History] Fluticasone/Salmeterol [Advair 100-50 Diskus] 1 each IH Q12H 03/05/19 [History] Furosemide [Lasix] 20 mg PO BID 03/05/19 [History] Gabapentin 800 mg PO TID 03/05/19 [History] Omeprazole [PriLOSEC] 40 mg PO BID 03/05/19 [History] Oxycodone HCl 5 mg PO Q6H PRN 03/05/19 [History] diazePAM [Valium] 2 mg PO PRN PRN 03/05/19 [History] Allergy/AdvReac Type Severity Reaction Status Date / Time bupropion [From Wellbutrin] AdvReac See Verified 03/05/19 06:41 Comments enalaprilat [From Vasotec] AdvReac Hives Verified 03/05/19 06:41 tramadol AdvReac Headache Verified 03/05/19 06:41 ROS unobtainable: due to mental status Oncology - Exam - Constitutional General appearance: cooperative, disheveled, no acute distress, no febrile Exam: appears drowsy at times but responds to voice - Head Head exam: Present: atraumatic - ENT ENT exam: Present: mucous membranes dry, normal oropharynx - Respiratory Respiratory exam: Present: decreased breath sounds, wheezes. Absent: respiratory distress - Cardiovascular Cardiovascular exam: Present: RRR - GI/Abdominal GI/Abdominal exam: Present: normal bowel sounds, soft. Absent: tenderness - Extremities Exam Extremities exam: Absent: calf tenderness Additional comments: 1+ pitting BLE edema - Neurological Exam Neurological exam: Present: alert, oriented X3, no focal deficits - Psychiatric Psychiatric exam: Present: flat affect - Skin Skin exam: Present: dry, normal color, warm Consult Discharge Plan - Plan Referrals: NONE,PCP [Primary Care Provider] - Inpatient Charges Provider: Dr. Dionne Kennedy <Isai Kennedy - Last Filed: 03/05/19 21:51> Date of Encounter: 03/05/19 - Data of Consult Requesting Physician: Eileen Chowdary MD Primary Care Provider: PCP NONE - Attending Attestation I have seen and examined and agree with Ms. Olivier's assessment. has advanced mixed histology cholangiocarcinoma and HCC. She has had TKI, IO and most recently chemotherapy with Cis/[place]lin. She receives her care under Dr. Puentes at [facility]. She is admitted with acute anemia. She is on Xarelto for port- associated thrombosis. Anemia appears secondary to gastrointestinal hemorrhage and may be compounded by chemotherapy. We agree with holding anticoagulation for now with plan to start at d/c once stable. She is receiving PRBC currently. We will assess nutritional stores for iron, b12 and folate. Replenish if necessary. Further therapy for malignancy will be deferred to her [facility] care team. Of note drug screen positive for cocaine and marijuana; The [facility] is not providing narcotics. Inpatient Charges Provider: Dr. Dionne Kennedy Consult - Inpatient Medicare Only: [id number]
[2019-03-05] MEDS: Ipratropium/Albuterol Neb 3 ML IH PRN (15:49)
[2019-03-05] MEDS ORDERED: Furosemide 20 MG/2 ML VIAL IVP ONE (15:58)
[2019-03-05] MEDS: Pantoprazole 40 MG VIAL IVP SCH (17:43)
[2019-03-05 18:42] LABS: Hematocrit 25.1 % (35.3-44.9); Hemoglobin 7.9 g/dL (11.5-15.4)
[2019-03-05] MEDS: Lactulose Oral Soln 20 GM/30 ML UDC PO SCH (20:25)
[2019-03-06] MEDS: Ipratropium/Albuterol Neb 3 ML IH PRN ×2 (00:30→03:44)
[2019-03-06 04:57] LABS: Basophils % 0.1 %; Hematocrit 25.3 % (35.3-44.9); Immature Granulocytes % 1.1 % (0-4); Lymphocytes # 0.5 K/mcL (0.6-4.6); Lymphocytes % 5.9 %; Mean Corpuscular HGB Conc 31.6 g/dL (31.6-35.5); Mean Corpuscular Hemoglobin 31.6 pg (28.0-33.3); Mean Platelet Volume 9.8 fL (9.4-12.4); Monocytes # 1.3 K/mcL (0.0-1.3); Monocytes % 15.8 %; Neutrophils # 6.4 K/mcL (1.6-8.9); Nucleated Red Blood Cells 1.2 /100 WBC (0); Platelet Count 175 K/mcL (140-400); Red Blood Count 2.53 M/mcL (3.82-4.97); Red Cell Distribution Width 17.2 % (11.5-14.5); Segmented Neutrophils % 77.1 %
[2019-03-06] MEDS: Pantoprazole 40 MG VIAL IVP SCH (05:13)
[2019-03-06 05:21] LABS: Albumin 3.7 g/dL (3.5-5.7); Albumin/Globulin Ratio 1.2 (1.1-2.2); Bilirubin,Total 0.5 mg/dL (0.3-1.0); Calcium 8.6 mg/dL (8.6-10.3); Globulin 3.1 g/dL (2.4-3.5); Potassium 4.3 mEq/L (3.5-5.1); Total Protein 6.8 g/dL (6.4-8.9)
[2019-03-06 05:25] LABS: % Iron Saturation 15 % (15-50); Iron 72 mcg/dL (50-170); Lactate Dehydrogenase 303 Units/L (140-271); Transferrin 350 mg/dL (203-362)
[2019-03-06 05:34] LABS: Ferritin 84 ng/mL (10-120)
[2019-03-06 05:39] LABS: Folate 17.2 ng/mL (3.0-16.0)
[2019-03-06] MEDS ORDERED: amLODIPine 5 MG TABLET PO SCH (09:00)
[2019-03-06] MEDS: Lactulose Oral Soln 20 GM/30 ML UDC PO SCH ×2 (09:40→09:42)
--- NOTE | 2019-03-06 10:24 | Discharge Summary ---
- NOTES TO OUTPATIENT PROVIDER Notes to Outpatient Provider: Smoked cocaine and THC, came in dehydrated and confused, improved w fluids and did require transfusion 1u prbc Date of Encounter: 03/06/19 Time of Encounter: 10:21 Hospital course: Dear Doctors, I recently had the opportunity to care for this patient during their recent hospital stay at [facility]. 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 She presented at time of admission with confusion. In the ED, vitals unremarkable, normotensive and satting well on home O2. Pt lethargic. Labs significant for Hb 7, Cr 2.5, Trop 0.08, and Utox w cocaine/benzos/THC. In the hospital, pt given fluids and transfusion 1u prbc. Encephalopathy resolved, Hb improved to and maintained at 8, and SAYDA improved to SCr 1.8. Pt able to answer all questions, maintain PO, and ambulate w assistance. She strongly requested to go home and while not optimal (unknown source of anemia, SAYDA not yet resolved, and recent hospitalization recommending placement which she refused), pt has capacity and is very pleasant and reasonable today and will have close follow up as well as several home health services. Dx: Acute toxic encephalopathy, cocaine use, demand ischemia, acute on chronic anemia Pertinent tests/consults: CT head, CXR, TTE Follow up: PCP 1 week, Onc 2 weeks Tests pending: blood cultures ngtd Med changes: - new amlodipine 5 daily - stop valium prn - stop oxycodone prn Mental status: awake, fully oriented Code status: Point Of Sale Associate spent on discharge: 35 minutes It has been my pleasure participating in this patient's care. Please contact me with any questions or concerns regarding their hospital stay. Sincerely, Christian Munoz MD - Discharge Medications Prescriptions: New amLODIPine [Norvasc] 5 mg PO DAILY #30 tablet Continued Loratadine [Claritin] 10 mg PO DAILY Mirtazapine [Remeron] 22.5 mg PO HS Carvedilol 12.5 mg PO BIDWM #0 Levothyroxine Sodium [Levoxyl] 125 mcg PO QAM #0 Rivaroxaban [Xarelto] 20 mg PO QPM #0 ARIPiprazole [Abilify] 7.5 mg PO DAILY Promethazine [Phenergan] 25 mg PO Q6HR PRN PRN Reason: NAUSEA/VOMITING Acetaminophen [Tylenol] 325 - 650 mg PO Q6HR PRN PRN Reason: Moderate Pain Albuterol Sulfate [Albuterol Inhaler] 1 puff IN Q6H PRN PRN Reason: Wheezing Prazosin HCl [Minipress] 10 mg PO HS Cholecalciferol (Vitamin D3) [Vitamin D3] 2,000 unit PO QAM diazePAM [Valium] 2 mg PO PRN PRN PRN Reason: Anxiety Fluticasone/Salmeterol [Advair 100-50 Diskus] 1 each IH Q12H Gabapentin 800 mg PO TID Omeprazole [PriLOSEC] 40 mg PO BID Discontinued Furosemide [Lasix] 20 mg PO BID Oxycodone HCl 5 mg PO Q6H PRN PRN Reason: Pain Home Medications: Loratadine [Claritin] 10 mg PO DAILY 02/17/16 [History] Mirtazapine [Remeron] 22.5 mg PO HS 05/03/17 [History] Carvedilol 12.5 mg PO BIDWM #0 11/07/18 [History] Levothyroxine Sodium [Levoxyl] 125 mcg PO QAM #0 11/07/18 [History] Rivaroxaban [Xarelto] 20 mg PO QPM #0 11/07/18 [History] ARIPiprazole [Abilify] 7.5 mg PO DAILY 12/14/18 [History] Promethazine [Phenergan] 25 mg PO Q6HR PRN 12/14/18 [History] Acetaminophen [Tylenol] 325 - 650 mg PO Q6HR PRN 12/15/18 [History] Albuterol Sulfate [Albuterol Inhaler] 1 puff IN Q6H PRN 12/15/18 [History] Prazosin HCl [Minipress] 10 mg PO HS 12/15/18 [History] Cholecalciferol (Vitamin D3) [Vitamin D3] 2,000 unit PO QAM 03/05/19 [History] Fluticasone/Salmeterol [Advair 100-50 Diskus] 1 each IH Q12H 03/05/19 [History] Gabapentin 800 mg PO TID 03/05/19 [History] Omeprazole [PriLOSEC] 40 mg PO BID 03/05/19 [History] diazePAM [Valium] 2 mg PO PRN PRN 03/05/19 [History] amLODIPine [Norvasc] 5 mg PO DAILY #30 tablet 03/06/19 [Rx] Allergies/Adverse Reactions: Allergy/AdvReac Type Severity Reaction Status Date / Time bupropion [From Wellbutrin] AdvReac See Verified 03/05/19 06:41 Comments enalaprilat [From Vasotec] AdvReac Hives Verified 03/05/19 06:41 tramadol AdvReac Headache Verified 03/05/19 06:41 Date of admission: 03/05/19 14:05 Primary care physician: PCP NONE Consults: 03/05/19 11:55 Consult to Booster Operator [CONS] Routine Reason for SW Consult: Substance abuse 03/05/19 12:59 Consult to Nutrition [CONS] Routine Comment: Consulting Provider: NUTRITION Reason for Dietary Consult: MST Score 03/05/19 13:05 Consult to Oncology [CONS] Routine Consulting Provider: Oncology [facility] Reason for Consult: Liver Ca Hx . Recent Chemo Time Notified: 13:05 Call Completed: Yes - Constitutional Vitals: Temp Pulse Resp BP Pulse Ox 97.5 F L 86 15 178/90 90 03/06/19 07:16 03/06/19 07:16 03/06/19 07:16 03/06/19 07:16 03/06/19 07:16 Exam: General: NAD, good eye contact, relatively well appearing, obese Thoracic: Mild expiratory wheezing b/l, no crackles. Chest chemo port Cardio: Normal S1 and S2, regular rate and rhythm, no murmurs Abdomen: Soft, nontender, obese Extremities: Warm, well perfused. DP pulses 2+ b/l. Does have pitting edema b/l legs to knees Skin: Intact. No rashes, bruises, or ulcers Neuro: Awake, fully oriented. Speech fluent - Patient Status Disposition: Home Health Service Condition: Fair Functional capacity at discharge: uses cane/walker Overall status at discharge: patient is progressing back to baseline - Discharge Instructions Follow Up With: [place],Pallavi M, MD [Non-Partnered Physician] - (1-2 weeks) NONE,PCP [Primary Care Provider] - ([facility] resident clinic at [facility] in [place], 1 week) - Diet and Activity Activity: resume usual activities as tolerated (except should quit cocaine and marijuana) Diet: advance to your usual diet
[2019-03-06 10:30] VITALS: BP 165/100
--- NOTE | 2019-03-06 10:49 | Physician Discharge Referral ---
Home Health/Hosp Referral Info Transfer to: Home Health Provider in Charge Post Discharge: PCP - Respiratory Orders Oxygen / L per min (4) Smoking Cessation: Smoking cessation has been advised. For more information, call the [place] Tobacco Quit Line at 0-137-OFNM-NOW. - Services Needed Following services are medically necessary services: Nursing, Home Health Aide, Physical Therapy, Occupational Therapy - Transfer Medications Prescriptions: amLODIPine [Norvasc] 5 mg PO DAILY #30 tablet Home Medications: Loratadine [Claritin] 10 mg PO DAILY 02/17/16 [History] Mirtazapine [Remeron] 22.5 mg PO HS 05/03/17 [History] Carvedilol 12.5 mg PO BIDWM #0 11/07/18 [History] Levothyroxine Sodium [Levoxyl] 125 mcg PO QAM #0 11/07/18 [History] Rivaroxaban [Xarelto] 20 mg PO QPM #0 11/07/18 [History] ARIPiprazole [Abilify] 7.5 mg PO DAILY 12/14/18 [History] Promethazine [Phenergan] 25 mg PO Q6HR PRN 12/14/18 [History] Acetaminophen [Tylenol] 325 - 650 mg PO Q6HR PRN 12/15/18 [History] Albuterol Sulfate [Albuterol Inhaler] 1 puff IN Q6H PRN 12/15/18 [History] Prazosin HCl [Minipress] 10 mg PO HS 12/15/18 [History] Cholecalciferol (Vitamin D3) [Vitamin D3] 2,000 unit PO QAM 03/05/19 [History] Fluticasone/Salmeterol [Advair 100-50 Diskus] 1 each IH Q12H 03/05/19 [History] Gabapentin 800 mg PO TID 03/05/19 [History] Omeprazole [PriLOSEC] 40 mg PO BID 03/05/19 [History] diazePAM [Valium] 2 mg PO PRN PRN 03/05/19 [History] amLODIPine [Norvasc] 5 mg PO DAILY #30 tablet 03/06/19 [Rx] Allergies/Adverse Reactions: Allergy/AdvReac Type Severity Reaction Status Date / Time bupropion [From Wellbutrin] AdvReac See Verified 05/02/19 06:41 Comments enalaprilat [From Vasotec] AdvReac Hives Verified 03/05/19 06:41 tramadol AdvReac Headache Verified 03/05/19 06:41 Certification: Further, I certify that my clinical findings support that this patient is homebound (i.e. absences from home require considerable and taxing effort and are for medical reasons or [facility] services or infrequently or short duration when for other reasons) because: Homebound Reason: Leaving home requires considerable and taxing effort due to condition Attestation: My signature below is to certify that this patient is under my care and that I, or nurse practitioner, or a physician's plumber's assistant working with me, has a [id number] encounter with this patient.
[2019-03-06 10:52] LABS: Estimated Average Glucose 126 mg/dl
--- NOTE | 2019-03-09 13:45 | Electrocardiograph Report ---
[facility] Test Date: 2019-03-05 Pat Name: Katrina Henderson Department: EXAM4 Room: E18 Gender: F Partnership Manager: : [id number] Requested By: Nancy Moran Order Number: [id number] Reading MD: Ozzy Carranza Measurements Intervals [place] Rate: 84 P: 39 MA: 178 QRS: 50 QRSD: 76 T: 66 QT: 386 QTc: 457 Interpretive Statements Sinus rhythm Low voltage, precordial leads Minimal ST elevation, lateral leads Electronically Signed On 03-09-2019 13:43:36 EDT by Ozzy Carranza
== END 2019-03-06 13:50 | disposition home health service (06) | DRG 469 ==
LOC: EMEROOARM 06:32 → INTOOBSV 10:42 → 2NENU 10:42 → SUATTDRO 14:05
PROVIDERS: ADMIT Internal Medicine; ATTEND Internal Medicine